=== PATIENT | female | born 1940 | race Caucasian/White ===

== ENCOUNTER 2016-09-15 13:10 | Observation (INO) | payer MEDICARE ==
[2016-09-15] MEDS ORDERED: MORPHINE SULFATE 4 MG INJ IV ONE (13:41)
[2016-09-15] MEDS ORDERED: Zofran 4 MG/2 ML VIAL IV ONE (13:41)
--- NOTE | 2016-09-15 13:43 | ERPHSYRPT ---
- History of Present Illness Time Seen by Provider: 09/15/16 13:30 Source: patient Exam Limitations: clinical condition Patient Subjective Stated Complaint: PT REPORTS BACK PAIN BEGINNING JOANNE 1 MONTH AGO-STATES PAIN INTERMITTANT-INCREASED THIS AM-DENIES UNUSUAL NUMBNESS OR TINLGING-DENIES INJURY-DENIES FALL Triage Nursing Assessment: PT PINK WARM ET [id number] TO BEAR WT ET TRANSFER WITH MINIMAL ASSISTANCE-RESP EASY ET NONLABORED-NO BRUISING OR ABRASIONS NOTED Physician History: PATIENT WITH HISTORY OF CHRONIC LOW BACK PAIN, FOR 4-5 MONTHS WITH INCREASING SEVERITY IN DISCOMFORT. DENIES HEAVY LIFTING, TRAUMA OF INJURY. DENIES RADIATION OF PAIN FROM BACK INTO BUTTOCK OR LEGS. Timing/Duration: today Method of Injury: unknown Quality: throbbing Back Pain Location: lumbar spine Severity of Pain-Max: severe Severity of Pain-Current: severe Associated Symptoms: muscle spasms Previous symptoms: same symptoms as today Allergies/Adverse Reactions: celecoxib [From Celebrex] Allergy (Verified 09/15/16 13:16) fenoprofen calcium [From Nalfon] Allergy (Verified 09/15/16 13:16) Home Medications: Metformin HCl 500 mg [Glucophage 500 MG] 500 mg PO BID 09/15/16 [History] Hx Tetanus, Diphtheria Vaccination/Date Given: No Hx Influenza Vaccination/Date Given: No Hx Pneumococcal Vaccination/Date Given: No Immunizations Up to Date: Yes - Review of Systems Constitutional: No Fever, No Chills Eyes: No Symptoms Ears, Nose, & Throat: No Symptoms Respiratory: No Symptoms, No Cough, No Dyspnea Cardiac: No Symptoms, No Chest Pain, No Edema, No Syncope Abdominal/Gastrointestinal: No Abdominal Pain, No Nausea, No Vomiting, No Diarrhea Genitourinary Symptoms: No Dysuria Musculoskeletal: No Back Pain, No Neck Pain Skin: No Symptoms, No Rash Neurological: No Dizziness, No Focal Weakness, No Sensory Changes Psychological: No Symptoms Endocrine: No Symptoms All Other Systems: Reviewed and Negative - Past Medical History Pertinent Past Medical History: Yes Cardiac History: Arrhythmia Endocrine Medical History: Diabetes Type II - Past Surgical History Past Surgical History: Yes Gastrointestinal: Appendectomy Musculoskeletal: Joint Replacement Female Surgical History: Hysterectomy, Other Other Surgical History: TONSILECTOMY - Social History Smoking Status: Former smoker How long have you smoked: 20 Exposure to second hand smoke: No Drug Use: none Patient Lives Alone: No - Female History Hx Now: No - Nursing Vital Signs Nursing Vital Signs: Initial Vital Signs Temperature 97.9 F 09/15/16 13:10 Pulse Rate 64 09/15/16 13:10 Respiratory Rate 20 09/15/16 13:10 Blood Pressure 172/68 09/15/16 13:10 O2 Sat by Pulse Oximetry 96 09/15/16 13:10 Pain Scale Pain Intensity 7 - Physical Exam General Appearance: mild distress Eye Exam: PERRL/EOMI, eyes nml inspection Neck Exam: normal inspection, non-tender, supple, full range of motion, No meningismus, No midline tenderness Respiratory Exam: normal breath sounds, lungs clear, No respiratory distress Cardiovascular Exam: regular rate/rhythm, normal heart sounds Gastrointestinal Exam: soft, No tenderness, No mass Back Exam: normal inspection, decreased range of motion, point tenderness (L-1 TO L-5 VERTEBRAL TENDERNESS, NO SARCROILIAC TENDERNESS) Extremity Exam: normal inspection, normal range of motion, No calf tenderness, No pedal edema Peripheral Pulses: carotid (R): 2+, carotid (L): 2+, femoral (R): 2+, femoral (L ): 2+, dorsalis-pedis (R): 2+ Neurologic Exam: alert, oriented x 3, cooperative, bible reader II-XII nml as tested, normal mood/affect, nml station & gait, sensation nml, No motor deficits Skin Exam: normal color, warm, dry, No rash SpO2 Interpretation: normal SpO2: 96 Oxygen Delivery: Room Air - CT Exams Lumbar Spine CT Interpretation: Discussed w/radiologist (MULTILEVEL DEGENERATIVE SPONDYLOSIS , GREATEST EXTENT AT L-4 TO L-5 LEVEL WHERE THERE IS SPINAL CANAL AND BILATERAL FORAMINAL STENOSIS, THERE IS SUBSEQUENT LEFT L-4 NERVE ROOT IMPINGEMENT) Ordered Tests: Active Orders 24 hr Category Date Time Status Up With Assistance ROUTINE Activity 09/15/16 15:06 Active Accucheck ACHS Care 09/15/16 15:06 Active Admission/Status Order ROUTINE Care 09/15/16 15:06 Active Call Admit Doctor for Orders ON ADMISSION Care 09/15/16 15:07 Active Clean Catch Urine Specimen STAT Care 09/15/16 13:41 Active Code Status Order ROUTINE Care 09/15/16 15:06 Active IV Care Q6H Care 09/15/16 15:06 Active IV Insertion STAT Care 09/15/16 13:41 Active Neuro Checks Q2H Care 09/15/16 15:06 Active Vital Signs Q4H Care 09/15/16 15:06 Active 1800 Calorie ADA Diet 09/15/16 Dinner Active LUMBAR SPINE W/O [CT] Stat Exams 09/15/16 13:41 Completed Oxygen NASAL CANNULA 2 lpm RT 09/15/16 15:06 Active Transfer Order Routine Transfer 09/15/16 15:05 Ordered Medication Summary Generic Name Dose Route Start Last Admin Trade Name Frejosiah PRN Reason Stop Dose Admin Acetaminophen 650 mg 09/15/16 15:06 Tylenol 325 Mg PO 10/15/16 15:05 Q4H PRN PRN PAIN AND/OR FEVER Sodium Chloride 1,000 mls @ 50 mls/hr 09/15/16 13:45 09/15/16 14:13 Sodium Chloride 0.9% 1000 Ml IV 10/15/16 13:44 100 mls/hr .Q20H MIRZA Administration Insulin Aspart 0 unit 09/15/16 15:06 Novolog Insulin SQ 10/15/16 15:05 UD PRN HYPERGLYCEMIA Metformin HCl 500 mg 09/15/16 17:00 Glucophage 500 Mg PO 10/15/16 16:59 BIDWM MIRZA Morphine Sulfate 4 mg 09/15/16 15:06 Morphine Sulfate 4 Mg Inj IV 09/20/16 15:05 Q4H PRN PRN PAIN Ondansetron HCl 4 mg 09/15/16 15:06 Zofran 4 Mg/2 Ml Vial IV 10/15/16 15:05 Q6H PRN PRN NAUSEA/VOMITING Discontinued Medications Generic Name Dose Route Start Last Admin Trade Name Shekhar PRN Reason Stop Dose Admin Morphine Sulfate 4 mg 09/15/16 13:41 09/15/16 14:16 Morphine Sulfate 4 Mg Inj IV 09/15/16 13:42 4 mg STAT ONE Administration Morphine Sulfate Confirm 09/15/16 13:51 Morphine Sulfate 4 Mg Inj Administered 09/15/16 13:52 Dose 4 mg .ROUTE .STK-MED ONE Ondansetron HCl 4 mg 09/15/16 13:41 09/15/16 14:15 Zofran 4 Mg/2 Ml Vial IV 09/15/16 13:42 4 mg STAT ONE Administration Ondansetron HCl Confirm 09/15/16 13:51 Zofran 4 Mg/2 Ml Vial Administered 09/15/16 13:52 Dose 4 mg .ROUTE .STK-MED ONE - Progress Progress: pain not gone completely Progress Note: 09/15/16 15:03 PATIENT GIVEN IV NORMAL SALINE 100ML/HR, ZOFRAN 4MG, MORPHINE SULFATE 4MG IV Discussed with : Andrew (DISCUSSED WITH DR SPIVEY AT 1450 FOR ADMISSION) Will see patient in: hospital (observation) - Departure Time of Disposition: 15:10 Departure Disposition: Observation Clinical Impression: INTRACTABLE LOW BACK PAIN, Degenerative joint disease (DJD) of lumbar spine Condition: Stable Critical Care Time: No Referrals: QUOC DESHPANDE [Primary Care Provider] -
[2016-09-15] MEDS ORDERED: Sodium Chloride 0.9% 1000 ML 1,000 ML IV SCH (13:45)
[2016-09-15] MEDS ORDERED: MORPHINE SULFATE 4 MG INJ ONE (13:51)
[2016-09-15] MEDS ORDERED: Zofran 4 MG/2 ML VIAL ONE (13:51)
--- NOTE | 2016-09-15 14:40 | XRAY ---
Indication: Chronic intermittent low back pain. Right hip and right back pain since this morning. Multiple contiguous axial images obtained through the lumbar spine. Sagittal and coronal reformatted images obtained. Comparison: None Axial images negative for acute fracture or suspicious bony lesions. There is mild/moderate L1-L5 broad-based disc osteophyte complex and degenerative vacuum disc phenomena. Greatest extent at L4-L5 level where there is spinal canal and bilateral foraminal stenosis compounded by 4 mm anterolisthesis and marked bilateral degenerative facet hypertrophy. Mean AP thecal sac diameter at this level measures approximately 5 mm. Same level also demonstrates bilateral foraminal stenosis, left greater than right with impingement of the exiting left L4 nerve root. Sagittal and coronal reformatted images demonstrates normal alignment with tiny multilevel thoracolumbar Schmorl nodes. No acute compression fracture. Visualized noncontrasted soft tissues demonstrates mild scattered aortoiliac calcifications. Impression: Multilevel degenerative spondylosis. Greatest extent at L4-L5 level where there is spinal canal and bilateral foraminal stenosis due to combination of disc osteophyte complex, grade 1 spondylolisthesis, and bilateral degenerative facet hypertrophy. Subsequent left L4 nerve root impingement. CTDI 83.70
[2016-09-15] MEDS ORDERED: Zofran 4 MG/2 ML VIAL IV PRN (15:06)
[2016-09-15] MEDS ORDERED: NovoLOG Insulin SQ PRN (15:06)
[2016-09-15] MEDS ORDERED: TYLENOL 325 MG PO PRN (15:06)
[2016-09-15] MEDS ORDERED: Glucophage 500 MG PO SCH (17:00)
[2016-09-15] MEDS: Glucophage XR 500 MG PO SCH (17:29)
[2016-09-15] MEDS: VITA-BEE WITH C PO SCH (17:30)
[2016-09-15] MEDS: MORPHINE SULFATE 4 MG INJ IV PRN (18:14)
[2016-09-15] MEDS: ZOCOR 20MG PO SCH (21:43)
[2016-09-16] MEDS: MORPHINE SULFATE 4 MG INJ IV PRN ×3 (04:36→23:22)
--- NOTE | 2016-09-16 08:46 | HP ---
CHIEF COMPLAINT: Intractable back pain. HISTORY OF PRESENT ILLNESS: The patient is a 76 year-old white female who reports increasing back pain over the past two months. She has a long history of back pain problems. She reports that she got up from bed feeling fine but when she got to the toilet she was unable to get up without excruciating pain. The patient summoned EMS who took up to three people to get her onto the ambulance cart. She was taken to [facility] initially where they received very rude treatment, according to the patient's family. They discharged her home with just a pain shot despite the fact they were unable to care for her in the home. They therefore immediately brought her to our facility and she was subsequently admitted for pain control for the intractable back pain. PAST MEDICAL HISTORY: Significant for diabetes mellitus type 2, cardiac arrhythmia. PAST SURGICAL HISTORY: Appendectomy, bilateral knee replacement, hysterectomy, tonsillectomy. HOME MEDICATIONS: Metformin 500 mg b.i.d. ALLERGIES: CELEBREX, NALFON. PHYSICAL EXAMINATION: Reveals an obese white female currently at rest in bed with minimal pain at the current time but reports pain with any movement. The patient's vital signs on admission showed temperature 97.9F, pulse 64, respiratory rate 20, blood pressure 172/68. O2 saturation was noted to be 96% on room air. HEENT: Normocephalic, atraumatic. Pupils equal round reactive to light. Extraocular movements are intact. Oropharynx is pink and moist. NECK: Supple without lymphadenopathy, thyromegaly or JVD. CHEST: Clear to auscultation with good air movement bilaterally. HEART: Regular rate and rhythm without murmurs, rubs or gallops. ABDOMEN: Soft, nontender, nondistended without hepatosplenomegaly or masses. EXTREMITIES: Without clubbing, cyanosis or edema. NEUROLOGIC: The patient appeared to be alert and oriented x3 with no focal deficits that were obvious. LAB DATA AND TESTS: The patient's evaluations included x-rays that revealed multilevel degenerative spondylosis greatest extent at the L4-L5, spinal canal and bilateral foraminal stenosis due to a combination of osteophyte complex grade I spondylolisthesis and bilateral degenerative facet hypertrophy. Subsequently L4 nerve root impingement. The patient had no laboratory studies in our facility but at [facility] she had UA which was essentially normal. CBC which was also likewise normal. Her metabolic panel showed a glucose nonfasting 171, BUN 16, creatinine 0.8. Liver enzymes were normal. Alkaline phosphatase was normal. ASSESSMENT: A patient with intractable back pain due to the above findings on CT scan. The patient has been admitted for pain control with morphine. We are adding muscle relaxer, anti-inflammatories, physical and occupational therapy evaluation. The patient will likely need subsequent admission to a rehab facility. She may also possibly need further evaluation by a specialist not available in my facility.
[2016-09-16] MEDS: Cyclobenzaprine 10 MG PO SCH ×3 (09:43→21:25)
[2016-09-16] MEDS: Mobic 7.5 MG PO SCH (09:43)
[2016-09-16] MEDS: VITA-BEE WITH C PO SCH (09:44)
[2016-09-16] MEDS ORDERED: FOLIC ACID PO SCH (10:00)
[2016-09-16] MEDS ORDERED: METFORMIN HCL 1000 MG PO SCH (10:00)
[2016-09-16] MEDS ORDERED: VITAMIN B COMP W C PO SCH (10:00)
[2016-09-16] MEDS ORDERED: Sodium Chloride 0.9% 10 ML FLUSH Syringe IV PRN (10:56)
[2016-09-16] MEDS: Sodium Chloride 0.9% 10 ML FLUSH Syringe IV SCH ×2 (15:06→21:25)
[2016-09-16] MEDS: Glucophage XR 500 MG PO SCH (17:12)
[2016-09-16] MEDS: ZOCOR 20MG PO SCH (21:25)
[2016-09-17] MEDS: Sodium Chloride 0.9% 10 ML FLUSH Syringe IV SCH ×3 (06:19→21:11)
[2016-09-17] MEDS: Mobic 7.5 MG PO SCH ×2 (09:41→09:42)
[2016-09-17] MEDS: Cyclobenzaprine 10 MG PO SCH ×3 (09:41→21:11)
[2016-09-17] MEDS: Norco 10/325 MG Tablet PO SCH ×3 (09:42→18:23)
[2016-09-17] MEDS: VITA-BEE WITH C PO SCH (09:42)
[2016-09-17] MEDS: Miralax Powder 17GM PACKET PO SCH (09:43)
[2016-09-17] MEDS: ENOXAPARIN SODIUM SQ SCH (09:43)
[2016-09-17] MEDS: Glucophage XR 500 MG PO SCH (16:50)
[2016-09-17] MEDS: ZOCOR 20MG PO SCH (21:11)
[2016-09-18] MEDS: Norco 10/325 MG Tablet PO SCH ×2 (02:17→11:18)
[2016-09-18] MEDS: Miralax Powder 17GM PACKET PO SCH (08:28)
[2016-09-18] MEDS: ENOXAPARIN SODIUM SQ SCH (08:28)
[2016-09-18] MEDS: VITA-BEE WITH C PO SCH (08:29)
[2016-09-18] MEDS: Mobic 7.5 MG PO SCH (08:29)
[2016-09-18] MEDS: Cyclobenzaprine 10 MG PO SCH (08:29)
--- NOTE | 2016-09-18 11:01 | PCM.DS ---
Discharge Summary Date of Admission: 09/15/16 15:20 Admitting Physician: BINTA SPIVEY Primary Care Provider: QUOC MCCRAY Allergies Allergies celecoxib [From Celebrex] Allergy (Verified 09/15/16 13:16) fenoprofen calcium [From Nalfon] Allergy (Verified 09/15/16 13:16) Hospital Summary - Hospital Course Hospital Course: Pt admitted through ER with intractable back pain, here for pain management. Found to have spinal stenosis on imaging. She was switched from IV to po pain meds yesterday and is tolerating the po meds well. Her pain is currently 3/, this is after being up and around the room on her walker. - Vitals & Intake/Output Vital Signs: Vital Signs Temperature 95.8 F 09/18/16 07:19 Pulse Rate 57 L 09/18/16 07:19 Respiratory Rate 20 09/18/16 07:19 Blood Pressure 143/65 09/18/16 07:19 O2 Sat by Pulse Oximetry 95 09/18/16 07:19 Intake & Output: Intake & Output 09/15/16 09/16/16 09/17/16 09/18/16 11:59 11:59 11:59 11:59 Intake Total 1268 1100 2160 Output Total 106 253 5699 Balance 818 700 910 Weight 102.569 kg - Lab Lab Results-Last 24 Hrs: Accuchecks Date 09/18/16 Date 09/17/16 Date 09/17/16 Date 09/17/16 Time 07:30 Time 16:30 Time 11:30 Accucheck Value: 117 Accucheck Value: 140 Accucheck Value: 124 Accucheck Value: 141 Micro Results-Entire Visit: Accuchecks Date 09/18/1609/17/1609/17/1609/17/16 Time 07:30 Time 16:30 Time 11:30 Accucheck Value: 117 Accucheck Value: 140 Accucheck Value: 124 Accucheck Value: 141 - Procedures and Test Procedures and Tests throughout Hospitalization: Therapy Orders & Screens 09/16/16 08:17 PT Eval & Treat ( Order) ROUTINE Evaluate: Yes Treat: Yes Reason for Eval:: back pain with movement Diagnosis: Intractable back pain Discharge Exam General Appearance: no apparent distress Neurologic Exam: alert, oriented x 3, cooperative Skin Exam: normal color, warm, dry Respiratory Exam: normal breath sounds, lungs clear, No crackles/rales, No rhonchi, No wheezing Cardiovascular Exam: regular rate/rhythm, normal heart sounds, No murmur Extremity Exam: No pedal edema, No swelling Back Exam: normal inspection Final Diagnosis/Problem List - Final Discharge Diagnosis/Problem (1) Intractable back pain Current Visit: No Status: Acute Assessment & Plan: Home on po pain meds and muscle relaxers. [place] 10/[address] mccray yesterday. To get OP PT. (2) Degenerative joint disease (DJD) of lumbar spine Current Visit: Yes Status: Acute Assessment & Plan: as above. (3) Diabetes mellitus Current Visit: Yes Status: Chronic Assessment & Plan: continue metformin. A1c 7.9 on 09/16/16 - f/u with PCP. (4) Hyperlipidemia Current Visit: Yes Status: Acute Assessment & Plan: continue simvastatin - Discharge Disposition: Home, Self-Care Condition: Stable Prescriptions: New Hydrocodone/APAP 10/325 mg [[place] 10/325 MG Tablet] 1 tab PO Q4H PRN PRN #60 tablet PRN Reason: Pain Polyethylene Glycol 3350 17 gm [Miralax Powder 17GM PACKET] 17 gm PO DAILY PRN #0 packet PRN Reason: Constipation Cyclobenzaprine HCl 10 mg [Cyclobenzaprine 10 MG] 10 mg PO TID PRN #30 tablet PRN Reason: Pain Continue Metformin HCl [Metformin HCl ER] 1,000 mg PO DAILY Simvastatin 20 mg PO DAILY Folic Acid/Vitamin B Comp W-C [[place] Plus Tablet] 5 mg PO DAILY Instructions: Low Back Pain, Constipation Additional Instructions: TAKE NORCO EVERY 4 HOURS NEEDED FOR PAIN. NORCO IS CONSTIPATING, TAKE MIRALAX DAILY, THIS IS AN OVER THE COUNTER POWDER THAT YOU ADD TO LIQUID, FOR CONSTIPATION LONG YOU NEED IT. PHYSICAL THERAPY WILL CONTACT YOU REGARDING OT/PT 3 TIMES WEEKLY AN OUTPATIENT. Follow up with: QUOC MCCRAY [Primary Care Provider] - 09/24/16 10:15 am Forms: Discharge Instructions, Patient Portal Information
[2016-09-18 11:59] VITALS: BP 135/70; PULSE 64; O2SAT 93
== END 2016-09-18 11:30 | disposition home or self-care (01) ==
LOC: ED 13:10 → MED SURG 15:20
PROVIDERS: ADMIT Family Medicine; ATTEND Family Medicine
DX: M54.5 Low back pain (principal); M47.896 Other spondylosis, lumbar region; E11.9 Type 2 diabetes mellitus without complications; E78.5 Hyperlipidemia, unspecified; Z79.4 Long term (current) use of insulin
CPT/HCPCS: 36000; 36415; 72131; 82962; 83036; 85652; 86430; 94760; 96360; 96374; 96375; 99285; G0378; J1650; J2270; J2405; A9270-GY

== ENCOUNTER 2019-11-30 19:58 | Emergency (ER) | payer MEDICARE ==
--- NOTE | 2019-11-30 20:01 | ERPHSYRPT ---
- History of Present Illness Time Seen by Provider: 11/30/19 20:01 Source: patient, family Exam Limitations: no limitations Physician History: This is an obese 79-year-old white female who presents to the emergency department after falling backwards and hitting her head. Patient states that she was putting up the hose and then stepped backwards tripped and fell onto her head. She complains of posterior headache and neck pain as well as left hip pain. Patient did not lose consciousness. Patient is not on any anticoagulation therapy. Occurred: just prior to arrival Severity: mild Head Injury Location: occipital Method of Injury: fell (After tripping over a hose) Loss of Consciousness: no loss of consciousness Associated Symptoms: headaches Allergies/Adverse Reactions: celecoxib [From Celebrex] Allergy (Verified 11/30/19 20:06) fenoprofen calcium [From Nalfon] Allergy (Verified 11/30/19 20:06) Home Medications: Simvastatin 40 mg PO HS 09/15/16 [History] Ascorbic Acid [Vitamin C] 1,000 mg PO DAILY 11/30/19 [History] Doxycycline Hyclate [Vibramycin] 50 mg PO DAILY 11/30/19 [History] Feverfew 200 mg PO DAILY 11/30/19 [History] Glimepiride 1 mg PO DAILY 11/30/19 [History] Lutein Extract/Zeaxanthin Ext [Lutein 15 mg Softgel] 1 each PO DAILY 11/30/19 [History] Tramadol HCl 50 mg [Ultram 50 mg] 50 mg PO QID 11/30/19 [History] Vit C/Vit E AC/Lut/Copper/Zinc [Preservision Lutein Softgel] 1 each PO DAILY 11/30/19 [History] Hx Tetanus, Diphtheria Vaccination/Date Given: No Hx Influenza Vaccination/Date Given: No Hx Pneumococcal Vaccination/Date Given: No Travel Risk - International Travel Have you traveled outside of the country in past 3 weeks: No - Coronavirus Screening Are you exhibiting any of the following symptoms?: No Close contact with a COVID-19 positive Pt in past 14-21 Days: No - Review of Systems Constitutional: No Symptoms Eyes: No Symptoms Ears, Nose, & Throat: No Symptoms Respiratory: No Symptoms Cardiac: No Symptoms Abdominal/Gastrointestinal: No Symptoms Genitourinary Symptoms: No Symptoms Musculoskeletal: Neck Pain, Fall, Injury (Left hip) Skin: No Symptoms Neurological: Headache Psychological: No Symptoms Endocrine: No Symptoms Hematologic/Lymphatic: No Symptoms Immunological/Allergic: No Symptoms All Other Systems: Reviewed and Negative - Past Medical History Pertinent Past Medical History: Yes Neurological History: No Pertinent History ENT History: Macular Degeneration Cardiac History: High Cholesterol Respiratory History: No Pertinent History Endocrine Medical History: Diabetes Type II Musculoskeletal History: Osteoarthritis GI Medical History: Irritable Bowel History: No Pertinent History Psycho-Social History: No Pertinent History Female Reproductive Disorders: No Pertinent History Other Medical History: BILATERAL TOTAL KNEE REPLACEMENTS - RIGHT AND LEFT DONE AT SAME TIME APPROXIMATELY 10 YEARS AGO. 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 - Social History Smoking Status: Former smoker How long have you smoked: 6 years Exposure to second hand smoke: No Drug Use: none Patient Lives Alone: No - Nursing Vital Signs Nursing Vital Signs: Initial Vital Signs Temperature 98.4 F 11/30/19 20:07 Pulse Rate 88 11/30/19 20:07 Respiratory Rate 20 11/30/19 20:07 Blood Pressure 181/93 11/30/19 20:07 O2 Sat by Pulse Oximetry 96 11/30/19 20:07 Pain Scale Pain Intensity 8 - Anne Coma Score Best Eye Response ([place]): (4) open spontaneously Best Verbal Response (Anne): (5) oriented Best Motor Response (Anne): (6) obeys commands [place] Total: 15 - Physical Exam General Appearance: mild distress, alert, anxiety, obese Head Injury: contusions, swelling (Posterior scalp) Eye Exam: bilateral eye: normal inspection, PERRL, EOMI ENT Exam: airway nml, nml ext.inspection, No evidence of ENT injury Neck Exam: supple, trachea midline, full range of motion, normal alignment, normal inspection, muscle spasm, other (Patient arrived without a c-collar in place and we placed the c-collar on her upon arrival and after examination.) Cardiovascular/Respiratory Exam: chest non-tender, normal breath sounds, regular rate/rhythm, heart sounds normal, no ecchymosis, no respiratory distress Gastrointestinal/Abdominal Exam: soft, non tender, no guarding Pelvic Exam: not done Rectal Exam: not done Back Exam: normal inspection, normal range of motion, No CVA tenderness, No vertebral tenderness Extremity Exam: normal range of motion, normal inspection, pelvis stable Mental Status Exam: alert, oriented x 3, 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 Exam: normal hearing, normal speech, PERRL Coordination/Gait Exam: normal finger to nose, normal gait, normal cerebellar function Motor/Sensory Exam: no motor deficit, no sensory deficit Skin Exam: normal color, warm, dry Lymphatic Exam: No adenopathy SpO2 Interpretation: normal O2 Delivery: Room Air - Course Nursing assessment & vital signs reviewed: Yes EKG Interpreted by Me: RATE (83), Sinus Rhythm, NORMAL AXIS, NORMAL INTERVALS, NORMAL QRS, Other (No acute ischemic changes.) Ordered Tests: Active Orders 24 hr Category Date Time Status Cervical Collar Application STAT Care 11/30/19 20:15 Active EKG-ER Only STAT Care 11/30/19 20:27 Active IV Insertion STAT Care 11/30/19 20:19 Active CERVICAL SPINE WO CONTRAST [CT] Stat Exams 11/30/19 20:11 Taken HEAD WITHOUT CONTRAST [CT] Stat Exams 11/30/19 20:11 Taken HIP UNI (2V) INCL PEL IF DONE Stat Exams 11/30/19 20:26 Taken Medication Summary Discontinued Medications Generic Name Dose Route Start Last Admin Trade Name Shekhar PRN Reason Stop Dose Admin Morphine Sulfate 4 mg 11/30/19 21:13 11/30/19 21:18 Morphine Sulfate 4 Mg Inj IV 11/30/19 21:14 4 mg STAT ONE Administration Morphine Sulfate Confirm 11/30/19 21:14 Morphine Sulfate 4 Mg Inj Administered 11/30/19 21:15 Dose 4 mg .ROUTE .STK-MED ONE Ondansetron HCl 4 mg 11/30/19 21:13 11/30/19 21:17 Zofran 4 Mg/2 Ml Vial IV 11/30/19 21:14 4 mg STAT ONE Administration Ondansetron HCl Confirm 11/30/19 21:14 Zofran 4 Mg/2 Ml Vial Administered 11/30/19 21:15 Dose 4 mg .ROUTE .STK-MED ONE - Progress Progress: improved, pain not gone completely, re-examined Progress Note: 11/30/19 21:32 CAT scan of the head without contrast reveals no acute intracranial abnormality CAT scan of the cervical spine without contrast reveals no acute fracture or subluxation. X-ray of the pelvis and left hip reveals no evidence of any acute fracture or dislocation. - Departure Departure Disposition: Home Clinical Impression: Fall with injury, Head injury, Contusion Condition: Stable Critical Care Time: No Referrals: QUOC DESHPANDE [Primary Care Provider] - Additional Instructions: Ice pack to area 3 times a day for 15 minutes at a time for the next 72 hours. May use Tylenol for pain. Hold on the plain Tylenol if you take the [place] pain medication. Have family members wake you up every 2 hours throughout the evening and morning. Return to the emergency department if sudden increase in pain or if vomiting occurs or if family members feel you are not your normal self. Prescriptions: Hydrocodone/APAP 5-325 Tab^^^ [[place] 5-325 Tablet^^^] 1 tab PO Q8H PRN PRN #8 tablet MDD 3 PRN Reason: Pain Cyclobenzaprine HCl 10 mg [Cyclobenzaprine 10 MG] 10 mg PO TID #10 tablet
[2019-11-30] MEDS ORDERED: Zofran 4 MG/2 ML VIAL IV ONE (21:13)
[2019-11-30] MEDS ORDERED: MORPHINE SULFATE 4 MG INJ IV ONE (21:13)
[2019-11-30] MEDS ORDERED: MORPHINE SULFATE 4 MG INJ ONE (21:14)
[2019-11-30] MEDS ORDERED: Zofran 4 MG/2 ML VIAL ONE (21:14)
[2019-11-30 21:54] VITALS: BP 174/72; PULSE 80; O2SAT 94
--- NOTE | 2019-11-30 22:11 | XRAY ---
Indication: Pain following fall. Posterior hematoma. Multiple contiguous axial images obtained through the head without contrast. Comparison: July 10, 2011. There is age-appropriate global atrophy and minimal periventricular degenerative micro-ischemia bilaterally. No acute intracranial hemorrhage, abnormal extra-axial fluid collection, or mass effect. Fourth ventricle is midline without hydrocephalus. New small posterior scalp hematoma near the vertex. Bony calvarium intact. Visualized paranasal sinuses and mastoid air cells are clear. Impression: 1. New posterior scalp hematoma. No underlying fracture or acute intracranial abnormalities. 2. Normal aging brain including atrophy and degenerative micro-ischemia. Comment: Preliminary interpretation was made by [facility]. No critical discrepancy.
--- NOTE | 2019-11-30 22:13 | XRAY ---
Indication: Pain following fall. Comparison: None AP pelvis and 2 view left hip demonstrates osteopenia, moderate lower lumbar degenerative spondylosis, and mild degenerative changes of both hips. No other bony, articular, or soft tissue abnormalities.
--- NOTE | 2019-11-30 22:17 | XRAY ---
Indication: Pain following fall. Posterior hematoma. Multiple contiguous axial images obtained through the cervical spine. Sagittal and coronal reformatted images obtained.. Comparison: July 10, 2011. Osseous structures demineralized consistent with patient's age. Axial images negative for acute fracture, suspicious bony lesions, or spinal canal stenosis. Stable mild C4-C57 degenerative endplate spurring and mild atlantoaxial degenerative arthropathy. Progressive worsening mild/moderate multilevel bilateral degenerative facet hypertrophy. Sagittal and coronal reformatted images again demonstrates lordotic straightening, positional versus paraspinal spasm. Stable C4-C6 disc space narrowing. No acute compression fracture, subluxation, or jumped facet. Normal appearing craniocervical junction. Visualized noncontrasted soft tissues demonstrates minimal carotid calcifications bilaterally. Impression: 1. Again cervical lordotic straightening, positional versus paraspinal spasm. 2. Negative acute fracture/subluxation. 3. Incidental multilevel degenerative changes. Comment: Preliminary interpretation was made by [facility]. No critical discrepancy.
== END 2019-11-30 22:08 | disposition home or self-care (01) ==
LOC: ED 19:58
DX: S00.03XA Contusion of scalp, initial encounter (principal); W01.0XXA Fall on same level from slipping, tripping and stumbling without subsequent striking against object, initial encounter; R51.9 Headache, unspecified; M54.2 Cervicalgia; M25.552 Pain in left hip; Z79.891 Long term (current) use of opiate analgesic; E78.00 Pure hypercholesterolemia, unspecified; E11.9 Type 2 diabetes mellitus without complications
CPT/HCPCS: 36000; 70450; 72125; 73502; 93005; 96374; 96375; 99284; J2270; J2405; L0172

== ENCOUNTER 2022-08-16 09:39 | Observation (INO) | payer MEDICARE ==
--- NOTE | 2022-08-16 09:47 | ERPHSYRPT ---
- History of Present Illness Time Seen by Provider: 08/16/22 09:46 Source: patient, family Exam Limitations: no limitations Physician History: This is an 82-year-old obese white female patient Dr. 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 She has had these symptoms intermittently for the last 2 weeks. She did fall and hit her head 2 weeks ago but never had it evaluated. Again, over the last 2 weeks her symptoms have been intermittent but the symptoms were worse this morning. She has not had any nausea vomiting or diarrhea. She has no abdominal pain. Timing/Duration: week(s) (2), intermittent, worse Severity of Dyspnea-Max: moderate Severity of Dyspnea-Current: moderate Possible Cause: no prior episodes Modifying Factors: Improves With: coughing Associated Symptoms: cough, chest pain/discomfort (Described as a generalized tightness) Allergies/Adverse Reactions: celecoxib [From Celebrex] Allergy (Verified 08/16/22 09:50) fenoprofen calcium [From Nalfon] Allergy (Verified 08/16/22 09:50) Home Medications: Simvastatin 40 mg PO HS 09/15/16 [History] Doxycycline Hyclate [Vibramycin] 50 mg PO DAILY 11/30/19 [History] Glimepiride 1 mg PO DAILY 11/30/19 [History] Lutein Extract/Zeaxanthin Ext [Lutein 15 mg Softgel] 1 each PO DAILY 11/30/19 [History] Tramadol HCl 50 mg [Ultram 50 mg] 50 mg PO QID 11/30/19 [History] Vit C/E/Cuperic/Zinc/Lutein [Preservision Lutein Softgel] 1 each PO DAILY 11/30/19 [History] Aspirin 81 gm Chew [Baby Aspirin 81 mg Chew] 81 mg PO DAILY 08/16/22 [History] Desoximetasone 15 gm TP DAILY 08/16/22 [History] Honey [Medihoney] 15 ml TP DAILY 08/16/22 [History] Tramadol HCl 50 mg [Ultram 50 mg] 50 mg PO QID 08/16/22 [History] metroNIDAZOLE [Metronidazole] 45 gm TP DAILY 08/16/22 [History] Hx Tetanus, Diphtheria Vaccination/Date Given: No Hx Influenza Vaccination/Date Given: No Hx Pneumococcal Vaccination/Date Given: No Travel Risk - International Travel Have you traveled outside of the country in past 3 weeks: No - Coronavirus Screening Are you exhibiting any of the following symptoms?: Yes Symptoms: Cough: New Onset, Shortness of Breath Close contact with a COVID-19 positive Pt in past 14-21 Days: No - Review of Systems Constitutional: Weakness Eyes: No Symptoms Ears, Nose, & Throat: No Symptoms Respiratory: Cough, Dyspnea on Exertion (MACIEL) Cardiac: Chest Pain (Neurolyse chest tightness) Abdominal/Gastrointestinal: No Symptoms Genitourinary Symptoms: No Symptoms Musculoskeletal: No Symptoms Skin: No Symptoms Neurological: Headache Psychological: No Symptoms Endocrine: No Symptoms Hematologic/Lymphatic: No Symptoms Immunological/Allergic: No Symptoms All Other Systems: Reviewed and Negative - Past Medical History Pertinent Past Medical History: Yes Neurological History: No Pertinent History ENT History: Macular Degeneration Cardiac History: High Cholesterol Respiratory History: No Pertinent History Endocrine Medical History: Diabetes Type II Musculoskeletal History: Osteoarthritis GI Medical History: Irritable Bowel History: No Pertinent History Psycho-Social History: No Pertinent History Female Reproductive Disorders: No Pertinent History Other Medical History: BILATERAL TOTAL KNEE REPLACEMENTS - RIGHT AND LEFT DONE AT SAME TIME APPROXIMATELY 10 YEARS AGO. 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 - Social History Smoking Status: Former smoker How long have you smoked: 6 years Exposure to second hand smoke: No Drug Use: none Patient Lives Alone: No - Nursing Vital Signs Nursing Vital Signs: Initial Vital Signs Respiratory Rate 24 08/16/22 09:43 O2 Sat by Pulse Oximetry 91 L 08/16/22 09:43 Pain Scale Pain Intensity 8 - Physical Exam General Appearance: no apparent distress, alert, anxiety, obese Eye Exam: PERRL/EOMI, eyes nml inspection Ears, Nose, Throat Exam: hearing grossly normal, normal ENT inspection, normal pharynx Neck Exam: normal inspection, non-tender, supple, full range of motion Respiratory Exam: normal breath sounds, chest tenderness (Described as generalized tightness), lungs clear, airway intact, No respiratory distress, No accessory muscle use Cardiovascular/Chest Exam: normal heart sounds, regular rate/rhythm Abdominal/Gastrointestinal Exam: soft, normal bowel sounds, No tenderness Rectal Exam: not done Extremity Exam: non-tender, normal range of motion, normal inspection, normal capillary refill, no calf tenderness, no pedal edema, pelvis stable, No calf tenderness Neurologic Exam: alert, oriented x 3, cooperative, fashion consultant II-XII nml as tested, normal mood/affect, nml cerebellar function, nml station & gait, sensation nml Skin Exam: normal color, warm, dry Lymphatic Exam: No adenopathy SpO2 Interpretation: normal, borderline oxygenation SpO2: 94 O2 Delivery: Room Air - Course Nursing assessment & vital signs reviewed: Yes Ordered Tests: Active Orders 24 hr Category Date Time Status EKG-ER Only STAT Care 08/16/22 09:47 Active IV Insertion STAT Care 08/16/22 09:47 Active Pulse Oximetry (ED) STAT Care 08/16/22 09:47 Active CHEST 1 VIEW (PORTABLE) Stat Exams 08/16/22 09:47 Completed CHEST WITH CONTRAST [CT] Stat Exams 08/16/22 10:54 Completed HEAD WITHOUT CONTRAST [CT] Stat Exams 08/16/22 09:48 Completed CBC W DIFF Stat Lab 08/16/22 10:09 Completed CMP Stat Lab 08/16/22 10:09 Completed D-DIMER QUANTITATIVE Stat Lab 08/16/22 10:09 Completed NT PRO BNPII Stat Lab 08/16/22 10:09 Completed PROTIME WITH INR Stat Lab 08/16/22 10:09 Completed TROPONIN Q4H Lab 08/16/22 10:09 Completed TROPONIN Q4H Lab 08/16/22 14:00 Ordered TROPONIN Q4H Lab 08/16/22 18:00 Ordered Transfer Order Routine Transfer 08/16/22 Ordered Medication Summary Generic Name Dose Route Start Last Admin Trade Name Freq PRN Reason Stop Dose Admin Ceftriaxone Sodium/Dextrose 1 g in 50 mls @ 100 mls/hr 08/16/22 12:20 08/16/22 12:25 Rocephin 1 Gm-D5w 50 Ml Bag IV 08/16/22 12:49 100 ml/hr STAT STA 100 mls/hr Administration Discontinued Medications Generic Name Dose Route Start Last Admin Trade Name Freq PRN Reason Stop Dose Admin Hydrocodone Bitart/Acetaminophen 10 ml 08/16/22 11:51 08/16/22 11:58 Hydrocodone/Acetaminophen 5 Ml Udcup PO 08/16/22 11:52 10 ml STAT STA Administration Hydrocodone Bitart/Acetaminophen Confirm 08/16/22 11:57 Hydrocodone/Acetaminophen 5 Ml Udcup Administered 08/16/22 11:58 Dose 10 ml .ROUTE .STK-MED ONE Sodium Chloride 500 mls @ 500 mls/hr 08/16/22 10:54 08/16/22 12:10 Sodium Chloride 0.9% 500 Ml IV 08/16/22 11:53 Infused .Q1H ONE Infusion Sodium Chloride Confirm 08/16/22 11:09 Sodium Chloride 0.9% 500 Ml Administered 08/16/22 11:10 Dose 500 mls @ ud IV .STK-MED ONE Ceftriaxone Sodium/Dextrose Confirm 08/16/22 12:23 Rocephin 1 Gm-D5w 50 Ml Bag Administered 08/16/22 12:24 Dose 1 g in 50 mls @ ud IV .STK-MED ONE Morphine Sulfate 4 mg 08/16/22 12:32 08/16/22 12:33 Morphine Sulfate 4 Mg/Ml Injection IV 08/16/22 12:33 4 mg STAT ONE Administration Morphine Sulfate Confirm 08/16/22 12:33 Morphine Sulfate 4 Mg/Ml Injection Administered 08/16/22 12:34 Dose 4 mg .ROUTE .STK-MED ONE Ondansetron HCl 4 mg 08/16/22 12:32 08/16/22 12:33 Ondansetron Hcl 4 Mg/2 Ml Vial IV 08/16/22 12:33 4 mg STAT ONE Administration Ondansetron HCl Confirm 08/16/22 12:33 Ondansetron Hcl 4 Mg/2 Ml Vial Administered 08/16/22 12:34 Dose 4 mg .ROUTE .STK-MED ONE Lab/Rad Data: Laboratory Result Diagrams 08/16/22 10:09 08/16/22 10:09 Laboratory Results 08/16/22 08/16/22 08/16/22 Range/Units 10:09 10:09 10:09 WBC (4.0-10.5) x10^3/uL RBC (4.1-5.4) x10^6/uL Hgb (12.0-16.0) g/dL Hct (35-47) % MCV (78-100) fL MCH (26-32) pg MCHC (32-36) g/dL RDW (11.5-14.0) % Plt Count (150-450) x10^3/uL MPV (7.5-11.0) fL Gran % (36.0-66.0) % Immature Gran % (Auto) (0.00-0.4) % Nucleat RBC Rel Count (0.00-0.1) % Eos # (Auto) (0-0.5) x10^3/uL Immature Gran # (Auto) (0.00-0.03) x10^3u/L Absolute Lymphs (auto) (1.0-4.6) x10^3/uL Absolute Monos (auto) (0.0-1.3) x10^3/uL Absolute Nucleated RBC (0.00-0.01) x10^3u/L Lymphocytes % (24.0-44.0) % Monocytes % (0.0-12.0) % Eosinophils % (0.00-5.0) % Basophils % (0.0-0.4) % Absolute Granulocytes (1.4-6.9) x10^3/uL Basophils # (0-0.4) x10^3/uL PT (9.4-12.5) SECONDS INR (0.8-3.0) D-Dimer (0.0-0.50) mg/L Sodium (137-145) mmol/L Potassium (3.5-5.1) mmol/L Chloride (98-107) mmol/L Carbon Dioxide (22-30) mmol/L Anion Gap (5-15) MEQ/L BUN (7-17) mg/dL Creatinine (0.52-1.04) mg/dL Estimated GFR ML/MIN Glucose (74-106) mg/dL Calcium (8.4-10.2) mg/dL Total Bilirubin (0.2-1.3) mg/dL AST (14-36) U/L ALT (0-35) U/L Alkaline Phosphatase (38-126) U/L Troponin I < 0.012 (0.000-0.034) ng/mL NT-Pro-B Natriuret Pep 1530 (<300) pg/mL Serum Total Protein (6.3-8.2) g/dL Albumin (3.5-5.0) g/dL Influenza Type A Ag NEGATIVE (NEGATIVE) Influenza Type B Ag NEGATIVE (NEGATIVE) RSV (PCR) NEGATIVE (NEGATIVE) SARS-CoV-2 (PCR) NEGATIVE (NEGATIVE) 08/16/22 08/16/22 08/16/22 Range/Units 10:09 10:09 10:09 WBC 8.1 (4.0-10.5) x10^3/uL RBC 3.85 L (4.1-5.4) x10^6/uL Hgb 11.5 L (12.0-16.0) g/dL Hct 36.7 (35-47) % MCV 95.3 (78-100) fL MCH 29.9 (26-32) pg MCHC 31.3 L (32-36) g/dL RDW 13.6 (11.5-14.0) % Plt Count 268 (150-450) x10^3/uL MPV 10.2 (7.5-11.0) fL Gran % 72.9 H (36.0-66.0) % Immature Gran % (Auto) 0.2 (0.00-0.4) % Nucleat RBC Rel Count 0.0 (0.00-0.1) % Eos # (Auto) 0.17 (0-0.5) x10^3/uL Immature Gran # (Auto) 0.02 (0.00-0.03) x10^3u/L Absolute Lymphs (auto) 1.19 (1.0-4.6) x10^3/uL Absolute Monos (auto) 0.80 (0.0-1.3) x10^3/uL Absolute Nucleated RBC 0.00 (0.00-0.01) x10^3u/L Lymphocytes % 14.8 L (24.0-44.0) % Monocytes % 9.9 (0.0-12.0) % Eosinophils % 2.1 (0.00-5.0) % Basophils % 0.1 (0.0-0.4) % Absolute Granulocytes 5.87 (1.4-6.9) x10^3/uL Basophils # 0.01 (0-0.4) x10^3/uL PT 11.1 (9.4-12.5) SECONDS INR 1.02 (0.8-3.0) D-Dimer 1.05 H* (0.0-0.50) mg/L Sodium 140 (137-145) mmol/L Potassium 4.6 (3.5-5.1) mmol/L Chloride 105 (98-107) mmol/L Carbon Dioxide 26 (22-30) mmol/L Anion Gap 14.1 (5-15) MEQ/L BUN 13 (7-17) mg/dL Creatinine 0.64 (0.52-1.04) mg/dL Estimated GFR > 60.0 ML/MIN Glucose 197 H (74-106) mg/dL Calcium 8.7 (8.4-10.2) mg/dL Total Bilirubin 0.60 (0.2-1.3) mg/dL AST 38 H (14-36) U/L ALT 53 H (0-35) U/L Alkaline Phosphatase 111 (38-126) U/L Troponin I (0.000-0.034) ng/mL NT-Pro-B Natriuret Pep (<300) pg/mL Serum Total Protein 7.7 (6.3-8.2) g/dL Albumin 3.8 (3.5-5.0) g/dL Influenza Type A Ag (NEGATIVE) Influenza Type B Ag (NEGATIVE) RSV (PCR) (NEGATIVE) SARS-CoV-2 (PCR) (NEGATIVE) - Progress Progress: improved, re-examined Air Movement: good Progress Note: 08/16/22 10:59 Chest x-ray was interpreted by the radiologist and the impression was reviewed by me. There is a new lateral right base round masslike opacity at least 6 cm in size 08/16/22 12:[address] was performed with contrast patient had symptoms of cough shortness of breath and an elevated D-dimer. I did contact Dr. Alberto Lim the radiologist he did not mention the presence or absence of a pulmonary embolus. I have ordered this study in the past with and without instructions to evaluate for pulmonary embolus and received comments from radiology for the presence or absence of a pulmonary embolus. When I contacted him and brought this to his attention he stated that he was not assuming or presuming that I was requesting commentary on the presence or absence of a pulmonary embolus because I did not request. 08/16/22 12:28 CT of the head was interpreted by the radiologist and I reviewed the impression. This is a nonacute senile brain on this examination. CT scan of the chest without contrast shows near complete right middle lobe infiltrate/consolidation with minimal right lower lobe consolidating disease wit h reactive effusion. In addition, there is distal esophageal circumferential wall thickening.? Reflux esophagitis This patient's medical issue is 1 of high complexity. The level complexity and the work-up performed is based on review of the patient's past medical history, review of the patient's medication list, review the patient's drug allergy list, history present illness and physical findings on examination. The work-up included a chest x-ray, twelve-lead EKG, placement of intravenous line, CBC, CMP, troponin level, D-dimer level, and BNP. I reviewed the results of the work-up. There was an elevated D-dimer and therefore I ordered a CT of the chest with contrast with the above-stated findings. Patient was mildly hypoxic upon entrance in the emergency department therefore we will contact the telehospitalist communications controller today for placing this patient in observation versus full admission. Patient will benefit from respiratory therapy intervention as well as intravenous antibiotics. 08/16/22 12:[address] Rodriguez, our telehospitalist on-call. I reviewed the patient history of present illness as well as her past medical history and the findings on physical examination. I reviewed the work-up results with him. We will admit this patient for IV antibiotics and respiratory therapy treatments. We will repeat labs in the morning. Blood Culture(s) Obtained: No Antibiotics given: No Counseled pt/family regarding: lab results, diagnosis, need for follow-up, rad results Medical Desision Making - Independent Historian Additional History obtained from: Spouse - Discussion of managment Reviewed:: Test results, Need for additional workup Agreed on:: Treatment plan, decision to admit - Diagnostic Testing Diagnostic test were ordered, analyzed, and reviewed by me: Yes Radiological Interpretation: Reviewed by me, Teleradiologist Report - Risk of complications The pt has a high risk of morbidity or mortality based on: Decision regarding hospitilization or escalation of hosp level of care - Departure Departure Disposition: In-patient Admission Clinical Impression: Pneumonia involving right lung, Pleural effusion, right, Hypoxia Condition: Fair Critical Care Time: No Referrals: QUOC DESHPANDE [Primary Care Provider] - Follow up/PCP as directed
[2022-08-16 10:10] LABS: Absolute Neutrophil Ct (ANC) 5.87 x10^3/uL (1.4-6.9); BASOPHIL % 0.1 % (0.0-0.4); Basophil (Absolute #) 0.01 x10^3/uL (0-0.4); Eosinophil % 2.1 % (0.00-5.0); Eosinophil (Absolute #) 0.17 x10^3/uL (0-0.5); Hematocrit 36.7 % (35-47); Hemoglobin 11.5 g/dL (12.0-16.0); IMMATURE GRAN # 0.02 x10^3u/L (0.00-0.03); IMMATURE GRAN % 0.2 % (0.00-0.4); Lymphocyte (Absolute #) 1.19 x10^3/uL (1.0-4.6); Lymphocytes % 14.8 % (24.0-44.0); Mean Cell Volume 95.3 fL (78-100); Mean Corpuscular Hemoglobin 29.9 pg (26-32); Mean Corpuscular Hgb Concent. 31.3 g/dL (32-36); Mean Platelet Volume 10.2 fL (7.5-11.0); Monocytes % 9.9 % (0.0-12.0); Neutrophil % 72.9 % (36.0-66.0); Platelet Count 268 x10^3/uL (150-450); Red Blood Count 3.85 x10^6/uL (4.1-5.4); Red Cell Distribution Width 13.6 % (11.5-14.0); White Blood Count 8.1 x10^3/uL (4.0-10.5)
[2022-08-16 10:24] LABS: ALBUMIN 3.8 g/dL (3.5-5.0); ALKALINE PHOSPHATASE 111 U/L (38-126); ANION GAP 14.1 MEQ/L (5-15); BLOOD UREA NITROGEN 13 mg/dL (7-17); CHLORIDE 105 mmol/L (98-107); Calcium 8.7 mg/dL (8.4-10.2); Carbon Dioxide 26 mmol/L (22-30); Creatinine 1 0.64 mg/dL (0.52-1.04); EST GLOMERULAR FILTRATION RATE > 60.0 ML/MIN; Glucose 197 mg/dL (74-106); Potassium 4.6 mmol/L (3.5-5.1); SGOT/AST 38 U/L (14-36); SGPT/ALT 53 U/L (0-35); SODIUM 140 mmol/L (137-145); Total Protein 7.7 g/dL (6.3-8.2)
[2022-08-16 10:33] LABS: INR 1.02 (0.8-3.0); PROTIME 11.1 SECONDS (9.4-12.5)
[2022-08-16 10:34] LABS: D-DIMER QUANTITATIVE 1.05 mg/L (0.0-0.50)
--- NOTE | 2022-08-16 10:43 | XRAY ---
Indication: Head injury following fall. Multiple contiguous axial images obtained through the head without contrast. Comparison: November 30, 2019 Again age-appropriate global atrophy with mild periventricular degenerative micro-ischemia. No acute intracranial hemorrhage, abnormal extra-axial fluid collection, or mass effect. Fourth ventricle is midline without hydrocephalus. Bony calvarium intact. Visualized paranasal sinuses and mastoid air cells are clear. Impression: Continued nonacute senile brain.
--- NOTE | 2022-08-16 10:45 | XRAY ---
Indication: Cough. Comparison: February 27, 2020 Portable chest demonstrates new lateral right base round masslike opacity at least 6 cm better evaluated with CT. Remaining heart and left lung unremarkable again with incidental calcified granuloma. Bony thorax intact again with osteopenia and mild degenerative changes.
[2022-08-16 10:48] LABS: INFLUENZA A NEGATIVE (NEGATIVE); INFLUENZA B NEGATIVE (NEGATIVE); RESPIRATORY SYNCTIAL VIRUS NEGATIVE (NEGATIVE); SARS-CoV-2 Xpert Express NEGATIVE (NEGATIVE)
[2022-08-16] MEDS ORDERED: Sodium Chloride 0.9% 500 ML 500 ML IV ONE ×2 (10:54→11:09)
[2022-08-16] MEDS ORDERED: HYDROCODONE-ACETAMIN 2.5-108/5 ML SOLUTION PO STA (11:51)
[2022-08-16] MEDS ORDERED: HYDROCODONE-ACETAMIN 2.5-108/5 ML SOLUTION ONE (11:57)
--- NOTE | 2022-08-16 12:01 | XRAY ---
Indication: Short of breath and cough. Elevated d-dimer. Multiple contiguous axial images obtained through the chest using 100 cc Isovue 370 contrast. Comparison: None Lungs demonstrate near complete right middle lobe consolidating airspace disease corresponding to same day chest radiograph abnormality. Much lesser degree seen superior segment right lower lobe. Small right effusion with right base compressive atelectasis presumed reactive. Left midlung demonstrates tiny calcified granuloma. Medial right lower lobe demonstrates 5 mm peripheral noncalcified nodule probably granulomatous. Heart is not enlarged. Aorta is normal in course and caliber. No pathologic mediastinal/hilar lymphadenopathy. Mid to distal esophagus demonstrates circumferential wall thickening possibly reflux esophagitis. Bony thorax intact with osteopenia and mild/moderate degenerative changes throughout the spine. Limited upper abdomen demonstrates 1.1 cm left lobe hepatic cyst versus hemangioma. Impression: 1. Near complete right middle lobe and minimal right lower lobe consolidating airspace disease with reactive effusion. 2. Distal esophageal circumferential wall thickening. Rule out reflux esophagitis. 3. Incidental small hepatic cyst versus hemangioma, chronic bony findings, old granulomatous disease.
[2022-08-16] MEDS ORDERED: ROCEPHIN 1 Gm-D5w 50 ml Bag** 1 G/50 ML IVPB IV STA (12:20)
[2022-08-16] MEDS ORDERED: ROCEPHIN 1 Gm-D5w 50 ml Bag** 1 G/50 ML IVPB IV ONE (12:23)
[2022-08-16] MEDS ORDERED: MORPHINE SULFATE 4 MG INJ IV ONE (12:32)
[2022-08-16] MEDS ORDERED: Zofran 4 MG/2 ML VIAL IV ONE (12:32)
[2022-08-16] MEDS ORDERED: Zofran 4 MG/2 ML VIAL ONE (12:33)
[2022-08-16] MEDS ORDERED: MORPHINE SULFATE 4 MG INJ ONE (12:33)
[2022-08-16] MEDS ORDERED: Zofran 4 MG/2 ML VIAL IV PRN (13:20)
[2022-08-16] MEDS ORDERED: TYLENOL 325 MG PO PRN (13:20)
[2022-08-16] MEDS ORDERED: DUONEB 0.5-3 MG/3 ml Neb IH PRN (14:29)
[2022-08-16] MEDS: ENOXAPARIN SODIUM SQ SCH (15:37)
[2022-08-16] MEDS: Zithromax 500 MG/ 250 ML NaCl Premix 500 MG/250 ML IVPB IV SCH (15:38)
--- NOTE | 2022-08-16 16:29 | PCM.HP ---
History of Present Illness - Chief Complaint Chief Complaint: Cough and dyspnea Date: 08/16/22 History of Present Illness: 82-year-old woman with a history of type 2 diabetes, who presents with cough and dyspnea. She notes symptoms from a few weeks ago after she fell on 08/02, but particularly in the last day or so she has had worsening dyspnea and cough productive of white sputum. Has had some intermittent fevers and nausea at home, but no sick contacts. Also has been having constant chest pain and headache since her fall, unchanged with exertion, with no focal weakness or sensory changes. She has no smoking history. - Review of Systems Constitutional: Fever, No Fatigue, No Lethargy, No Malaise, No Night Sweats Eyes: No Eye Pain, No Vision Changes Ears, Nose, & Throat: No Throat Pain Respiratory: Cough, Short Of Breath, No Orthopnea, No Wheezing Cardiac: Chest Pain, No Edema, No Palpitations Abdominal/Gastrointestinal: Nausea, Diarrhea, No Abdominal Pain, No Vomiting Genitourinary Symptoms: No Dysuria, No Frequency Musculoskeletal: No Back Pain Skin: No Rash Neurological: Headache, No Dizziness, No Focal Weakness, No Sensory Changes Medications & Allergies Home Medications: Home Medication List Simvastatin 40 mg PO HS 09/15/16 [History Confirmed 08/16/22] Doxycycline Hyclate [Vibramycin] 50 mg PO DAILY 11/30/19 [History Confirmed 08/16/22] Glimepiride 1 mg PO DAILY 11/30/19 [History Confirmed 08/16/22] Lutein Extract/Zeaxanthin Ext [Lutein 15 mg Softgel] 1 each PO DAILY 11/30/19 [History Confirmed 08/16/22] Tramadol HCl 50 mg [Ultram 50 mg] 50 mg PO Q6H PRN PRN 11/30/19 [History Confirmed 08/16/22] Vit C/E/Cuperic/Zinc/Lutein [Preservision Lutein Softgel] 1 each PO DAILY 11/30/19 [History Confirmed 08/16/22] Aspirin 81 gm Chew [Baby Aspirin 81 mg Chew] 162 mg PO DAILY PRN PRN 08/16/22 [History Confirmed 08/16/22] Desoximetasone 15 gm TP HSPRN PRN 08/16/22 [History Confirmed 08/16/22] Honey [Medihoney] 15 ml TP DAILY PRN PRN 08/16/22 [History Confirmed 08/16/22] Patient Own Med [Patient Own Medication] 1 tablet PO DAILY 08/16/22 [History Confirmed 08/16/22] Tramadol HCl 50 mg [Ultram 50 mg] 50 mg PO QID 08/16/22 [History Confirmed 08/16/22] metroNIDAZOLE [Metronidazole] 45 gm TP HS PRN PRN 08/16/22 [History Confirmed 08/16/22] Allergies/Adverse Reactions: Allergies Allergy/AdvReac Type Severity Reaction Status Date / Time celecoxib [From Celebrex] Allergy Verified 08/16/22 09:50 fenoprofen calcium Allergy Verified 08/16/22 09:50 [From Nalfon] - Past Medical History Past Medical History: Yes Neurological History: No Pertinent History ENT History: Macular Degeneration Cardiac History: High Cholesterol Endocrine Medical History: Diabetes Type II Musculoskelatal History: Osteoarthritis GI Medical History: Irritable Bowel History: No Pertinent History Pyscho-Social History: No Pertinent History Reproductive Disorders: No Pertinent History Comment: BILATERAL TOTAL KNEE REPLACEMENTS - RIGHT AND LEFT DONE AT SAME TIME APPROXIMATELY 10 YEARS AGO. 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 - Social History Smoking Status: Former smoker How long have you smoked: 6 years Exposure to second hand smoke: No Alcohol: None Drug Use: none Significant Family History: no pertinent family hx - Physical Exam Vital Signs: Vital Signs - 24 hr Temp Pulse Resp BP BP Pulse Ox 08/16/22 13:57 66 20 96 08/16/22 13:29 99.4 F 68 24 164/75 95 08/16/22 12:48 94 L 08/16/22 11:20 101 H 23 176/91 94 L 08/16/22 11:19 104 H 22 176/91 96 08/16/22 11:16 108 H 21 174/142 95 08/16/22 11:00 165/88 08/16/22 10:39 101 H 17 158/77 08/16/22 10:25 108 H 34 H 168/52 08/16/22 09:47 94 L 08/16/22 09:44 97.8 F 100 H 22 176/84 94 L 08/16/22 09:43 24 91 L General Appearance: no apparent distress Neurologic Exam: alert, oriented x 3 Eye Exam: eyes nml inspection Respiratory Exam: normal breath sounds, lungs clear, No accessory muscle use, No wheezing Cardiovascular Exam: irregular (Normal rate), No murmur, No edema Gastrointestinal/Abdomen Exam: soft, No tenderness, No distention Results - Labs Lab/Micro Results: Lab Results-Last 24 Hours 08/16/22 08/16/22 08/16/22 Range/Units 10:09 10:09 10:09 WBC 8.1 (4.0-10.5) x10^3/uL RBC 3.85 L (4.1-5.4) x10^6/uL Hgb 11.5 L (12.0-16.0) g/dL Hct 36.7 (35-47) % MCV 95.3 (78-100) fL MCH 29.9 (26-32) pg MCHC 31.3 L (32-36) g/dL RDW 13.6 (11.5-14.0) % Plt Count 268 (150-450) x10^3/uL MPV 10.2 (7.5-11.0) fL Gran % 72.9 H (36.0-66.0) % Immature Gran % (Auto) 0.2 (0.00-0.4) % Nucleat RBC Rel Count 0.0 (0.00-0.1) % Eos # (Auto) 0.17 (0-0.5) x10^3/uL Immature Gran # (Auto) 0.02 (0.00-0.03) x10^3u/L Absolute Lymphs (auto) 1.19 (1.0-4.6) x10^3/uL Absolute Monos (auto) 0.80 (0.0-1.3) x10^3/uL Absolute Nucleated RBC 0.00 (0.00-0.01) x10^3u/L Lymphocytes % 14.8 L (24.0-44.0) % Monocytes % 9.9 (0.0-12.0) % Eosinophils % 2.1 (0.00-5.0) % Basophils % 0.1 (0.0-0.4) % Absolute Granulocytes 5.87 (1.4-6.9) x10^3/uL Basophils # 0.01 (0-0.4) x10^3/uL PT 11.1 (9.4-12.5) SECONDS INR 1.02 (0.8-3.0) D-Dimer 1.05 H* (0.0-0.50) mg/L Sodium 140 (137-145) mmol/L Potassium 4.6 (3.5-5.1) mmol/L Chloride 105 (98-107) mmol/L Carbon Dioxide 26 (22-30) mmol/L Anion Gap 14.1 (5-15) MEQ/L BUN 13 (7-17) mg/dL Creatinine 0.64 (0.52-1.04) mg/dL Estimated GFR > 60.0 ML/MIN Glucose 197 H (74-106) mg/dL POC Glucometer (74 to 106) mg/dL Calcium 8.7 (8.4-10.2) mg/dL Total Bilirubin 0.60 (0.2-1.3) mg/dL AST 38 H (14-36) U/L ALT 53 H (0-35) U/L Alkaline Phosphatase 111 (38-126) U/L Troponin I (0.000-0.034) ng/mL NT-Pro-B Natriuret Pep (<300) pg/mL Serum Total Protein 7.7 (6.3-8.2) g/dL Albumin 3.8 (3.5-5.0) g/dL Influenza Type A Ag (NEGATIVE) Influenza Type B Ag (NEGATIVE) RSV (PCR) (NEGATIVE) SARS-CoV-2 (PCR) (NEGATIVE) 08/16/22 08/16/22 08/16/22 Range/Units 10:09 10:09 10:09 WBC (4.0-10.5) x10^3/uL RBC (4.1-5.4) x10^6/uL Hgb (12.0-16.0) g/dL Hct (35-47) % MCV (78-100) fL MCH (26-32) pg MCHC (32-36) g/dL RDW (11.5-14.0) % Plt Count (150-450) x10^3/uL MPV (7.5-11.0) fL Gran % (36.0-66.0) % Immature Gran % (Auto) (0.00-0.4) % Nucleat RBC Rel Count (0.00-0.1) % Eos # (Auto) (0-0.5) x10^3/uL Immature Gran # (Auto) (0.00-0.03) x10^3u/L Absolute Lymphs (auto) (1.0-4.6) x10^3/uL Absolute Monos (auto) (0.0-1.3) x10^3/uL Absolute Nucleated RBC (0.00-0.01) x10^3u/L Lymphocytes % (24.0-44.0) % Monocytes % (0.0-12.0) % Eosinophils % (0.00-5.0) % Basophils % (0.0-0.4) % Absolute Granulocytes (1.4-6.9) x10^3/uL Basophils # (0-0.4) x10^3/uL PT (9.4-12.5) SECONDS INR (0.8-3.0) D-Dimer (0.0-0.50) mg/L Sodium (137-145) mmol/L Potassium (3.5-5.1) mmol/L Chloride (98-107) mmol/L Carbon Dioxide (22-30) mmol/L Anion Gap (5-15) MEQ/L BUN (7-17) mg/dL Creatinine (0.52-1.04) mg/dL Estimated GFR ML/MIN Glucose (74-106) mg/dL POC Glucometer (74 to 106) mg/dL Calcium (8.4-10.2) mg/dL Total Bilirubin (0.2-1.3) mg/dL AST (14-36) U/L ALT (0-35) U/L Alkaline Phosphatase (38-126) U/L Troponin I < 0.012 (0.000-0.034) ng/mL NT-Pro-B Natriuret Pep 1530 (<300) pg/mL Serum Total Protein (6.3-8.2) g/dL Albumin (3.5-5.0) g/dL Influenza Type A Ag NEGATIVE (NEGATIVE) Influenza Type B Ag NEGATIVE (NEGATIVE) RSV (PCR) NEGATIVE (NEGATIVE) SARS-CoV-2 (PCR) NEGATIVE (NEGATIVE) 08/16/22 08/16/22 Range/Units 14:07 14:43 WBC (4.0-10.5) x10^3/uL RBC (4.1-5.4) x10^6/uL Hgb (12.0-16.0) g/dL Hct (35-47) % MCV (78-100) fL MCH (26-32) pg MCHC (32-36) g/dL RDW (11.5-14.0) % Plt Count (150-450) x10^3/uL MPV (7.5-11.0) fL Gran % (36.0-66.0) % Immature Gran % (Auto) (0.00-0.4) % Nucleat RBC Rel Count (0.00-0.1) % Eos # (Auto) (0-0.5) x10^3/uL Immature Gran # (Auto) (0.00-0.03) x10^3u/L Absolute Lymphs (auto) (1.0-4.6) x10^3/uL Absolute Monos (auto) (0.0-1.3) x10^3/uL Absolute Nucleated RBC (0.00-0.01) x10^3u/L Lymphocytes % (24.0-44.0) % Monocytes % (0.0-12.0) % Eosinophils % (0.00-5.0) % Basophils % (0.0-0.4) % Absolute Granulocytes (1.4-6.9) x10^3/uL Basophils # (0-0.4) x10^3/uL PT (9.4-12.5) SECONDS INR (0.8-3.0) D-Dimer (0.0-0.50) mg/L Sodium (137-145) mmol/L Potassium (3.5-5.1) mmol/L Chloride (98-107) mmol/L Carbon Dioxide (22-30) mmol/L Anion Gap (5-15) MEQ/L BUN (7-17) mg/dL Creatinine (0.52-1.04) mg/dL Estimated GFR ML/MIN Glucose (74-106) mg/dL POC Glucometer 182 H (74 to 106) mg/dL Calcium (8.4-10.2) mg/dL Total Bilirubin (0.2-1.3) mg/dL AST (14-36) U/L ALT (0-35) U/L Alkaline Phosphatase (38-126) U/L Troponin I < 0.012 (0.000-0.034) ng/mL NT-Pro-B Natriuret Pep (<300) pg/mL Serum Total Protein (6.3-8.2) g/dL Albumin (3.5-5.0) g/dL Influenza Type A Ag (NEGATIVE) Influenza Type B Ag (NEGATIVE) RSV (PCR) (NEGATIVE) SARS-CoV-2 (PCR) (NEGATIVE) - Radiology Impressions Radiology Exams & Impressions: Radiology Procedures Category Date Time Status CHEST 1 VIEW (PORTABLE) Stat Exams 08/16/22 09:47 Completed CHEST WITH CONTRAST [CT] Stat Exams 08/16/22 10:54 Completed HEAD WITHOUT CONTRAST [CT] Stat Exams 08/16/22 09:[address] chest right middle lobe complete consolidation with some remaining right lower lobe consolidation and adjacent effusion. CT head no acute intracranial hemorrhage, extra-axial fluid collection, or mass effect - Other Procedures and Tests Respiratory Therapy 08/16/22 13:55 Oxygen Nasal Cannula 2 lpm 08/16/22 13:57 Respiratory Therapy Assessment DAILY 08/16/22 16:03 EKG ROUTINE Assessment/Plan (1) Pneumonia involving right lung Current Visit: Yes Status: Acute Assessment & Plan: 82-year-old woman with a history of type 2 diabetes and acne rosacea, who presents with cough and dyspnea and found to have pneumonia ## Pneumonia right middle lobar pneumonia. Was briefly weaned to room air in the ED, but now back on 2 L oxygen. Empiric Rocephin and azithromycin, day 1 Follow-up sputum cultures, blood cultures Wean oxygen as tolerated to maintain SpO2 greater than 91% ## Chest pain atypical for ACS. Serial troponins are negative. ## Irregular heart rhythm no known history of A-fib. Check EKG to see if frequent PACs, PVCs, or A-fib Monitor on telemetry ## Type 2 diabetes only requiring glimepiride at home. Placed on moderate dose sliding scale insulin CODE STATUS: Full code Prophylaxis: Lovenox 40 mg daily Entirety of encounter took place via telemedicine. Patient consented to telemedicine. Code(s): J18.9 - PNEUMONIA, UNSPECIFIED ORGANISM Telemedicine Encounter - Telemedicine Encounter Telemedicine Encounter: The entirety of this encounter was performed via Telemedicine"
[2022-08-16] MEDS: ZOCOR 20MG PO SCH (22:38)
[2022-08-16] MEDS: HUMULIN R SQ PRN (22:41)
[2022-08-17 05:00] LABS: Absolute Neutrophil Ct (ANC) 5.28 x10^3/uL (1.4-6.9); BASOPHIL % 0.3 % (0.0-0.4); Basophil (Absolute #) 0.02 x10^3/uL (0-0.4); Eosinophil % 2.6 % (0.00-5.0); Hematocrit 33.4 % (35-47); Hemoglobin 10.4 g/dL (12.0-16.0); IMMATURE GRAN # 0.02 x10^3u/L (0.00-0.03); IMMATURE GRAN % 0.3 % (0.00-0.4); Lymphocyte (Absolute #) 1.29 x10^3/uL (1.0-4.6); Lymphocytes % 16.9 % (24.0-44.0); Mean Cell Volume 96.5 fL (78-100); Mean Corpuscular Hemoglobin 30.1 pg (26-32); Mean Corpuscular Hgb Concent. 31.1 g/dL (32-36); Mean Platelet Volume 10.4 fL (7.5-11.0); Monocyte (Absolute #) 0.83 x10^3/uL (0.0-1.3); Monocytes % 10.9 % (0.0-12.0); Platelet Count 284 x10^3/uL (150-450); Red Blood Count 3.46 x10^6/uL (4.1-5.4); Red Cell Distribution Width 13.6 % (11.5-14.0); White Blood Count 7.6 x10^3/uL (4.0-10.5)
[2022-08-17 05:21] LABS: ALBUMIN 3.4 g/dL (3.5-5.0); BILIRUBIN,TOTAL 0.6 mg/dL (0.2-1.3)
[2022-08-17 05:28] LABS: ISTAT CREA 0.6 mg/dL (0.6-1.3); ISTAT K 4.7 mmol/L (3.5-4.9); ISTAT iCA 1.11 mmol/L (1.12-1.32)
[2022-08-17] MEDS: ENOXAPARIN SODIUM SQ SCH (09:24)
[2022-08-17] MEDS: HUMULIN R SQ PRN ×3 (09:25→21:21)
[2022-08-17] MEDS: ROCEPHIN 1 Gm-D5w 50 ml Bag** 1 G/50 ML IVPB IV SCH (09:25)
[2022-08-17] MEDS: Zithromax 500 MG/ 250 ML NaCl Premix 500 MG/250 ML IVPB IV SCH (11:20)
--- NOTE | 2022-08-17 15:53 | PCM.NOTE ---
Date and Time: 08/17/22 1547 Subjective Assessment: No acute events overnight. Still feels pretty poorly, but weaned to room air. Sitting in the chair without any nausea, and able to walk to the bathroom. Has a moderate appetite. Still has significant cough. Objective Exam General Appearance: no apparent distress Neurologic Exam: alert, oriented x 3 Skin Exam: No rash Wound Assessment: Skin/Wound Assessment Wound/Incision Assessment Start: 08/16/22 14:50 Text: Status: Active Freq: Q6H Protocol: Document 08/17/22 14:00 AR (Rec: 08/17/22 14:26 AR [id number]) Wound Photo Photo Taken No Respiratory Exam: normal breath sounds, lungs clear, other (On room air), No respiratory distress Cardiovascular Exam: regular rate/rhythm, No murmur, No edema OBJECTIVE DATA Vital Signs: Vital Signs - 24 hr Temp Pulse Resp BP Pulse Ox 08/17/22 12:00 97.7 F 73 16 145/67 92 L 08/17/22 07:20 97.6 F 82 16 137/67 94 L 08/17/22 04:00 97.7 F 82 18 130/60 91 L 08/16/22 23:23 97.5 F 66 18 125/60 94 L 08/16/22 19:13 97.3 F 97 H 18 134/67 95 08/16/22 18:55 75 16 96 08/16/22 16:00 97.0 F 80 22 134/80 96 Pain Assessment - Last Documented Pain Intensity 0 Pain Scale Used 0-10 Pain Scale Intake and Output: Intake & Output 08/15/22 08/16/22 08/17/22 08/18/22 11:59 11:59 11:59 11:59 Intake Total 1350 480 Output Total 800 Balance 550 480 Weight 101 kg 100.6 kg Lab Results: Lab Results-Last 24 Hours 08/16/22 08/16/22 08/16/22 Range/Units 16:23 18:20 21:47 WBC (4.0-10.5) x10^3/uL RBC (4.1-5.4) x10^6/uL Hgb (12.0-16.0) g/dL Hct (35-47) % MCV (78-100) fL MCH (26-32) pg MCHC (32-36) g/dL RDW (11.5-14.0) % Plt Count (150-450) x10^3/uL MPV (7.5-11.0) fL Gran % (36.0-66.0) % Immature Gran % (Auto) (0.00-0.4) % Nucleat RBC Rel Count (0.00-0.1) % Eos # (Auto) (0-0.5) x10^3/uL Immature Gran # (Auto) (0.00-0.03) x10^3u/L Absolute Lymphs (auto) (1.0-4.6) x10^3/uL Absolute Monos (auto) (0.0-1.3) x10^3/uL Absolute Nucleated RBC (0.00-0.01) x10^3u/L Lymphocytes % (24.0-44.0) % Monocytes % (0.0-12.0) % Eosinophils % (0.00-5.0) % Basophils % (0.0-0.4) % Absolute Granulocytes (1.4-6.9) x10^3/uL Basophils # (0-0.4) x10^3/uL Sodium Direct (138-146) mmol/L Potassium (3.5-4.9) mmol/L Chloride (98-109) mmol/L Carbon Dioxide (24-29) mmol/L Venous BUN (8-26) mg/dL Creatinine (0.6-1.3) mg/dL Glucose (70-105) mg/dL POC Glucometer 173 H 267 H (74 to 106) mg/dL Ionized Calcium (1.12-1.32) mmol/L Total Bilirubin (0.2-1.3) mg/dL AST (14-36) U/L ALT (0-35) U/L Alkaline Phosphatase (38-126) U/L Troponin I < 0.012 (0.000-0.034) ng/mL Serum Total Protein (6.3-8.2) g/dL Albumin (3.5-5.0) g/dL 08/17/22 08/17/22 08/17/22 Range/Units 04:41 04:41 07:28 WBC 7.6 (4.0-10.5) x10^3/uL RBC 3.46 L (4.1-5.4) x10^6/uL Hgb 10.4 L (12.0-16.0) g/dL Hct 33.4 L (35-47) % MCV 96.5 (78-100) fL MCH 30.1 (26-32) pg MCHC 31.1 L (32-36) g/dL RDW 13.6 (11.5-14.0) % Plt Count 284 (150-450) x10^3/uL MPV 10.4 (7.5-11.0) fL Gran % 69.0 H (36.0-66.0) % Immature Gran % (Auto) 0.3 (0.00-0.4) % Nucleat RBC Rel Count 0.0 (0.00-0.1) % Eos # (Auto) 0.20 (0-0.5) x10^3/uL Immature Gran # (Auto) 0.02 (0.00-0.03) x10^3u/L Absolute Lymphs (auto) 1.29 (1.0-4.6) x10^3/uL Absolute Monos (auto) 0.83 (0.0-1.3) x10^3/uL Absolute Nucleated RBC 0.00 (0.00-0.01) x10^3u/L Lymphocytes % 16.9 L (24.0-44.0) % Monocytes % 10.9 (0.0-12.0) % Eosinophils % 2.6 (0.00-5.0) % Basophils % 0.3 (0.0-0.4) % Absolute Granulocytes 5.28 (1.4-6.9) x10^3/uL Basophils # 0.02 (0-0.4) x10^3/uL Sodium Direct 137 L (138-146) mmol/L Potassium 4.7 (3.5-4.9) mmol/L Chloride 103 (98-109) mmol/L Carbon Dioxide 24 (24-29) mmol/L Venous BUN 15 (8-26) mg/dL Creatinine 0.6 (0.6-1.3) mg/dL Glucose 154 H (70-105) mg/dL POC Glucometer 176 H (74 to 106) mg/dL Ionized Calcium 1.11 L (1.12-1.32) mmol/L Total Bilirubin 0.60 (0.2-1.3) mg/dL AST 50 H (14-36) U/L ALT 55 H (0-35) U/L Alkaline Phosphatase 108 (38-126) U/L Troponin I (0.000-0.034) ng/mL Serum Total Protein 7.0 (6.3-8.2) g/dL Albumin 3.4 L (3.5-5.0) g/dL 08/17/22 Range/Units 11:51 WBC (4.0-10.5) x10^3/uL RBC (4.1-5.4) x10^6/uL Hgb (12.0-16.0) g/dL Hct (35-47) % MCV (78-100) fL MCH (26-32) pg MCHC (32-36) g/dL RDW (11.5-14.0) % Plt Count (150-450) x10^3/uL MPV (7.5-11.0) fL Gran % (36.0-66.0) % Immature Gran % (Auto) (0.00-0.4) % Nucleat RBC Rel Count (0.00-0.1) % Eos # (Auto) (0-0.5) x10^3/uL Immature Gran # (Auto) (0.00-0.03) x10^3u/L Absolute Lymphs (auto) (1.0-4.6) x10^3/uL Absolute Monos (auto) (0.0-1.3) x10^3/uL Absolute Nucleated RBC (0.00-0.01) x10^3u/L Lymphocytes % (24.0-44.0) % Monocytes % (0.0-12.0) % Eosinophils % (0.00-5.0) % Basophils % (0.0-0.4) % Absolute Granulocytes (1.4-6.9) x10^3/uL Basophils # (0-0.4) x10^3/uL Sodium Direct (138-146) mmol/L Potassium (3.5-4.9) mmol/L Chloride (98-109) mmol/L Carbon Dioxide (24-29) mmol/L Venous BUN (8-26) mg/dL Creatinine (0.6-1.3) mg/dL Glucose (70-105) mg/dL POC Glucometer 305 H (74 to 106) mg/dL Ionized Calcium (1.12-1.32) mmol/L Total Bilirubin (0.2-1.3) mg/dL AST (14-36) U/L ALT (0-35) U/L Alkaline Phosphatase (38-126) U/L Troponin I (0.000-0.034) ng/mL Serum Total Protein (6.3-8.2) g/dL Albumin (3.5-5.0) g/dL Radiology Exams: Radiology Procedures Category Date Time Status CHEST 1 VIEW (PORTABLE) Stat Exams 08/16/22 09:47 Completed CHEST WITH CONTRAST [CT] Stat Exams 08/16/22 10:54 Completed HEAD WITHOUT CONTRAST [CT] Stat Exams 08/16/22 09:48 Completed Assessment/Plan (1) Pneumonia involving right lung Current Visit: Yes Status: Acute Assessment & Plan: 82-year-old woman with a history of type 2 diabetes and acne rosacea, who presents with cough and dyspnea and found to have pneumonia ## Pneumonia right middle lobar pneumonia. Improving today, weaned to room air. Ambulating somewhat, although not back to her baseline yet. Gram stain on reflective, still pending sputum culture. Continue empiric Rocephin and azithromycin, day 2 Follow-up sputum cultures, blood cultures ## Chest pain atypical for ACS. Serial troponins are negative. ## Irregular heart rhythm reviewed on telemetry and multiple EKGs. Patient has sinus rhythm, with frequent PACs. No evidence of A-fib. Rate is better controlled now that her pneumonia is being treated. ## Type 2 diabetes only requiring glimepiride at home. Glucose levels running little higher today. Continue moderate dose sliding scale insulin CODE STATUS: Full code Prophylaxis: Lovenox 40 mg daily Entirety of encounter took place via telemedicine. Patient consented to telemedicine. Code(s): J18.9 - PNEUMONIA, UNSPECIFIED ORGANISM Telemedicine Encounter - Telemedicine Encounter Telemedicine Encounter: The entirety of this encounter was performed via Telemedicine"
[2022-08-17] MEDS: HYDROCODONE-ACETAMIN 2.5-108/5 ML SOLUTION PO PRN ×2 (16:57→21:22)
[2022-08-17] MEDS: ZOCOR 20MG PO SCH (21:21)
[2022-08-18 05:20] LABS: Hematocrit 35.5 % (35-47); Hemoglobin 11.1 g/dL (12.0-16.0); Mean Cell Volume 95.2 fL (78-100); Mean Corpuscular Hemoglobin 29.8 pg (26-32); Mean Corpuscular Hgb Concent. 31.3 g/dL (32-36); Mean Platelet Volume 10.2 fL (7.5-11.0); Platelet Count 327 x10^3/uL (150-450); Red Blood Count 3.73 x10^6/uL (4.1-5.4); Red Cell Distribution Width 13.6 % (11.5-14.0); White Blood Count 8.4 x10^3/uL (4.0-10.5)
[2022-08-18 05:55] LABS: ANION GAP 15.2 MEQ/L (5-15); BLOOD UREA NITROGEN 17 mg/dL (7-17); CHLORIDE 101 mmol/L (98-107); Calcium 8.8 mg/dL (8.4-10.2); Carbon Dioxide 24 mmol/L (22-30); Creatinine 1 0.55 mg/dL (0.52-1.04); EST GLOMERULAR FILTRATION RATE > 60.0 ML/MIN; Glucose 225 mg/dL (74-106); Potassium 4.6 mmol/L (3.5-5.1); SODIUM 136 mmol/L (137-145)
[2022-08-18] MEDS: HUMULIN R SQ PRN ×2 (08:31→12:31)
[2022-08-18] MEDS: ROCEPHIN 1 Gm-D5w 50 ml Bag** 1 G/50 ML IVPB IV SCH (09:15)
[2022-08-18] MEDS: ENOXAPARIN SODIUM SQ SCH (09:15)
[2022-08-18] MEDS: Zithromax 500 MG/ 250 ML NaCl Premix 500 MG/250 ML IVPB IV SCH (10:03)
--- NOTE | 2022-08-18 10:29 | PCM.DS ---
Discharge Summary Date of Admission: 08/16/22 13:08 Date of Discharge: 08/18/2022 Admitting Physician: ZHANNA ALVARENGA MD Primary Care Provider: QUOC DESHPANDE Allergies Allergies celecoxib [From Celebrex] Allergy (Verified 08/16/22 09:50) fenoprofen calcium [From Nalfon] Allergy (Verified 08/16/22 09:50) Hospital Summary - Hospital Course Hospital Course: 82-year-old with a history of diabetes who presented with a few days of worsening cough and dyspnea, found to have a right middle lobe pneumonia. Was briefly on oxygen, but quickly weaned off. She was started on empiric Rocephin and azithromycin, with improvement in her symptoms. She was able to sit up without difficulty, and ambulate to the bathroom on room air. She will be discharged to complete a 7-day course of antibiotics, ending on 08/22. She had an irregular heart rhythm, but on EKG and telemetry she was only found to have frequent PACs. - Vitals & Intake/Output Vital Signs: Vital Signs Temperature 97.5 F 08/18/22 07:12 Pulse Rate 75 08/18/22 07:55 Respiratory Rate 18 08/18/22 07:55 Blood Pressure 143/76 08/18/22 07:12 O2 Sat by Pulse Oximetry 91 L 08/18/22 07:55 Intake & Output: Intake & Output 08/15/22 08/16/22 08/17/22 08/18/22 11:59 11:59 11:59 11:59 Intake Total 1350 1820 Output Total 800 Balance 550 1820 Weight 101 kg 100.6 kg 102.1 kg - Lab Result Diagrams: 08/18/22 05:04 08/18/22 05:04 Lab Results-Last 24 Hrs: Lab Results-Last 24 Hours 08/17/22 08/17/22 08/17/22 Range/Units 11:51 16:40 16:46 WBC (4.0-10.5) x10^3/uL RBC (4.1-5.4) x10^6/uL Hgb (12.0-16.0) g/dL Hct (35-47) % MCV (78-100) fL MCH (26-32) pg MCHC (32-36) g/dL RDW (11.5-14.0) % Plt Count (150-450) x10^3/uL MPV (7.5-11.0) fL Sodium (137-145) mmol/L Potassium (3.5-5.1) mmol/L Chloride (98-107) mmol/L Carbon Dioxide (22-30) mmol/L Anion Gap (5-15) MEQ/L BUN (7-17) mg/dL Creatinine (0.52-1.04) mg/dL Estimated GFR ML/MIN Glucose (74-106) mg/dL POC Glucometer 305 H 183 H (74 to 106) mg/dL Hemoglobin A1c 7.37 H (4.5-6.0) % Calcium (8.4-10.2) mg/dL 08/17/22 08/18/22 08/18/22 Range/Units 20:37 05:04 05:04 WBC 8.4 (4.0-10.5) x10^3/uL RBC 3.73 L (4.1-5.4) x10^6/uL Hgb 11.1 L (12.0-16.0) g/dL Hct 35.5 (35-47) % MCV 95.2 (78-100) fL MCH 29.8 (26-32) pg MCHC 31.3 L (32-36) g/dL RDW 13.6 (11.5-14.0) % Plt Count 327 (150-450) x10^3/uL MPV 10.2 (7.5-11.0) fL Sodium 136 L (137-145) mmol/L Potassium 4.6 (3.5-5.1) mmol/L Chloride 101 (98-107) mmol/L Carbon Dioxide 24 (22-30) mmol/L Anion Gap 15.2 H (5-15) MEQ/L BUN 17 (7-17) mg/dL Creatinine 0.55 (0.52-1.04) mg/dL Estimated GFR > 60.0 ML/MIN Glucose 225 H (74-106) mg/dL POC Glucometer 239 H (74 to 106) mg/dL Hemoglobin A1c (4.5-6.0) % Calcium 8.8 (8.4-10.2) mg/dL 08/18/22 Range/Units 06:54 WBC (4.0-10.5) x10^3/uL RBC (4.1-5.4) x10^6/uL Hgb (12.0-16.0) g/dL Hct (35-47) % MCV (78-100) fL MCH (26-32) pg MCHC (32-36) g/dL RDW (11.5-14.0) % Plt Count (150-450) x10^3/uL MPV (7.5-11.0) fL Sodium (137-145) mmol/L Potassium (3.5-5.1) mmol/L Chloride (98-107) mmol/L Carbon Dioxide (22-30) mmol/L Anion Gap (5-15) MEQ/L BUN (7-17) mg/dL Creatinine (0.52-1.04) mg/dL Estimated GFR ML/MIN Glucose (74-106) mg/dL POC Glucometer 220 H (74 to 106) mg/dL Hemoglobin A1c (4.5-6.0) % Calcium (8.4-10.2) mg/dL Micro Results-Entire Visit: Microbiology 08/16/22 19:20 Gram Stain - Final Sputum - Expectorant Accuchecks Date 08/18/22 Date 08/17/22 Date 08/17/22 Date 08/17/22 Time 07:12 Time 20:25 Time 17:01 Time 12:37 - Radiology Exams Ordered Rad Exams-Entire Visit: Radiology Procedures Category Date Time Status CHEST 1 VIEW (PORTABLE) Stat Exams 08/16/22 09:47 Completed CHEST WITH CONTRAST [CT] Stat Exams 08/16/22 10:54 Completed HEAD WITHOUT CONTRAST [CT] Stat Exams 08/16/22 09:[address] chest: Near complete right middle lobe and minimal right lower lobe co nsolidation with reactive effusion. CT head: Age-appropriate global atrophy, but no acute intracranial hemorrhage, abnormal extra-axial fluid collection, or mass effect. - Procedures and Test Procedures and Tests throughout Hospitalization: Therapy Orders & Screens 08/16/22 13:20 Respiratory Therapy Consult ONCE Comment: Reason For Exam: 08/16/22 13:55 Oxygen Nasal Cannula 2 lpm Comment: Diagnosis: RIGHT SIDED PNE 08/16/22 13:57 Respiratory Therapy Assessment DAILY Comment: Diagnosis: RIGHT SIDED PNE 08/16/22 14:50 OT Screen per Nursing Assess ONCE Comment: Protocol Order Physician Instructions: Greater than 3 points order OT Admission Screening Reason For Exam: Triggered on Admission Diagnosis: RIGHT SIDED PNE Open Wound/Cellutlitis/Pressure Ulcers: Yes Acute Fx/ORIF/Change in wt bearing status: No Severe MUSCULOSKELETAL pain: No ADL Dysfunction: No Acute CVA w/Hemiparesis/Hemiplegia: No Decreased Functional Mobility/Strength: No Sprain/Strain: No Acute Post-op Mobility Dysfunction: No Total Points: 5 PT Screen per Nursing Assess ONCE Comment: Protocol Order Physician Instructions: Greater than 3 points order PT Admission Screenin Reason For Exam: Triggered on Admission Diagnosis: RIGHT SIDED PNE Open Wound/Cellutlitis/Pressure Ulcers: Yes Acute Fx/ORIF/Change in wt bearing status: No Severe MUSCULOSKELETAL pain: No ADL Dysfunction: No Acute CVA w/Hemiparesis/Hemiplegia: No Decreased Functional Mobility/Strength: No Sprain/Strain: No Acute Post-op Mobility Dysfunction: No Total Points: 5 08/16/22 16:03 EKG ROUTINE Comment: Diagnosis: RIGHT SIDED PNE Discharge Exam General Appearance: no apparent distress Neurologic Exam: alert, normal mood/affect, No motor deficits, No sensory deficit Eye Exam: eyes nml inspection Respiratory Exam: normal breath sounds, lungs clear, No respiratory distress Cardiovascular Exam: regular rate/rhythm (Prior irregularity has resolved), No murmur, No edema Gastrointestinal/Abdomen Exam: soft, No tenderness, No distention Wound Assessment: Skin/Wound Assessment Wound/Incision Assessment Start: 08/16/22 14:50 Text: Status: Active Freq: Q6H Protocol: Document 08/18/22 08:00 GWENDOLYN (Rec: 08/18/22 08:23 GWENDOLYN [id number]) Wound Photo Photo Taken Yes Date: 08/16/22 Final Diagnosis/Problem List - Final Discharge Diagnosis/Problem (1) Pneumonia involving right lung Current Visit: Yes Status: Acute Code(s): J18.9 - PNEUMONIA, UNSPECIFIED OR GANISM - Discharge Discharge Date: 08/18/22 Disposition: Home, Self-Care Condition: Fair Prescriptions: New Azithromycin 250 mg PO DAILY #2 tablet Cefdinir 300 mg PO BID #8 cap Continue Simvastatin 40 mg PO HS Glimepiride 1 mg PO DAILY Doxycycline Hyclate [Vibramycin] 50 mg PO DAILY Tramadol HCl 50 mg [Ultram 50 mg] 50 mg PO Q6H PRN PRN PRN Reason: Pain Lutein Extract/Zeaxanthin Ext [Lutein 15 mg Softgel] 1 each PO DAILY Vit C/E/Cuperic/Zinc/Lutein [Preservision Lutein Softgel] 1 each PO DAILY metroNIDAZOLE [Metronidazole] 45 gm TP HS PRN PRN PRN Reason: Redness/Irritation Honey [Medihoney] 15 ml TP DAILY PRN PRN PRN Reason: Redness/Irritation Desoximetasone 15 gm TP HSPRN PRN PRN Reason: Redness/Irritation Aspirin 81 gm Chew [Baby Aspirin 81 mg Chew] 162 mg PO DAILY PRN PRN PRN Reason: Chest Pain Patient Own Med [Patient Own Medication] 1 tablet PO DAILY Additional Instructions: You are being prescribed two antibiotics: 1) Take azithromcyin once a day for two days, on 08/19 and Sunday 08/20 2) Take cefdinir twice a day for four more days through Tuesday 08/22 Follow up with: QUOC DESHPANDE [Primary Care Provider] - 08/30/22 2:30 pm
[2022-08-18 11:46] VITALS: BP 139/66; PULSE 76; O2SAT 93
== END 2022-08-18 13:35 | disposition home or self-care (01) ==
LOC: ED 09:39 → MED SURG 13:08
PROVIDERS: ADMIT Internal Medicine; ATTEND Internal Medicine
DX: J18.9 Pneumonia, unspecified organism (principal); E11.9 Type 2 diabetes mellitus without complications; R07.9 Chest pain, unspecified; R00.0 Tachycardia, unspecified; E78.5 Hyperlipidemia, unspecified; W19.XXXD Unspecified fall, subsequent encounter; Z85.828 Personal history of other malignant neoplasm of skin; Z20.828 Contact with and (suspected) exposure to other viral communicable diseases; Z79.899 Other long term (current) drug therapy
CPT/HCPCS: 0241U; 36000; 36415; 70450; 71045; 71260; 80047; 80048; 80053; 82040; 82247; 82947; 83036; 83521; 83880; 84075; 84450; 84460; 84484; 85025; 85027; 85379; 85610; 87070; 93005; 94760; 96365; 96374; 96375; 99285; Q3014; J0456; J0696; J1650; J1815; J2270; J2405; A9270-GY

== ENCOUNTER 2023-10-24 20:36 | Emergency (ER) | payer MEDICARE ==
[2023-10-24 21:04] VITALS: RESP 18; TEMP 98.3
--- NOTE | 2023-10-24 21:14 | ERPHSYRPT ---
- History of Present Illness Time Seen by Provider: 10/24/23 21:01 Source: patient, family Exam Limitations: no limitations Patient Subjective Stated Complaint: pt states she fell backward while walking and hit her head on a rock and has pain in her lt shoulder, elbow and neck Triage Nursing Assessment: pt alert and oriented, answers questions approp. pt back to room per wheelchair and transfers to stretcher with minimal assist. respirations nonlabored. skin warm and dry. no bruising or deformity noted to lt shoulder or elbow. cap refill and radial pulse wnl. pupils equal and reactive. no hematoma or open area on back of head. Physician History: 83 years old female with history of hypertension, hyperlipidemia, diabetes mellitus, issues with balance, needing cane or walker for ambulation, was holding something while coming couple of steps from the dec, got unbalanced and fell backward, hit her head against a rock. No loss of consciousness. She is complaining ofK mild headache, neck pain left shoulder and left hip pain. Also hit her elbows but no difficulty movements. Patient was able to get up and ambulate/weightbearing. Denies feeling dizzy lightheaded or chest pain palpitations before or after the fall. No abdominal pain nausea or vomiting. Allergies/Adverse Reactions: celecoxib [From Celebrex] Allergy (Verified 10/24/23 21:04) fenoprofen calcium [From Nalfon] Allergy (Verified 10/24/23 21:04) Home Medications: Simvastatin 40 mg PO HS 09/15/16 [History] Doxycycline Hyclate [Vibramycin] 50 mg PO DAILY 11/30/19 [History] Glimepiride 1 mg PO DAILY 11/30/19 [History] Tramadol HCl 50 mg [Ultram 50 mg] 50 mg PO Q6H PRN PRN 11/30/19 [History] Vit C/E/Cuperic/Zinc/Lutein [Preservision Lutein Softgel] 1 each PO DAILY 11/30/19 [History] Aspirin 81 gm Chew [Baby Aspirin 81 mg Chew] 81 mg PO DAILY PRN PRN 08/16/22 [History] Desoximetasone 15 gm TP HSPRN PRN 08/16/22 [History] Patient Own Med [Patient Own Medication] 1 tablet PO DAILY 08/16/22 [History] Diclofenac Sodium [Voltaren Arthritis Pain] 20 gm TP DAILY PRN PRN 10/24/23 [History] Hx Tetanus, Diphtheria Vaccination/Date Given: No Hx Influenza Vaccination/Date Given: No Hx Pneumococcal Vaccination/Date Given: Yes Immunizations Up to Date: No Travel Risk - International Travel Have you traveled outside of the country in past 3 weeks: No - Emerging Infectious Disease Are you exhibiting symptoms associated with any current EIDs: No - Review of Systems Constitutional: No Symptoms Eyes: No Symptoms Ears, Nose, & Throat: No Symptoms Respiratory: No Symptoms Cardiac: No Symptoms Abdominal/Gastrointestinal: No Symptoms Genitourinary Symptoms: No Symptoms Musculoskeletal: Neck Pain, Fall, Injury, Joint Pain Skin: No Symptoms Neurological: Headache Endocrine: No Symptoms Hematologic/Lymphatic: No Symptoms Immunological/Allergic: No Symptoms - Past Medical History Pertinent Past Medical History: Yes Neurological History: No Pertinent History ENT History: Macular Degeneration Cardiac History: Arrhythmia, High Cholesterol Respiratory History: Pneumonia Endocrine Medical History: Diabetes Type II Musculoskeletal History: Osteoarthritis GI Medical History: Irritable Bowel History: No Pertinent History Psycho-Social History: No Pertinent History Female Reproductive Disorders: No Pertinent History Other Medical History: BILATERAL TOTAL KNEE REPLACEMENTS - RIGHT AND LEFT DONE AT SAME TIME APPROXIMATELY 10 YEARS AGO. 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 Significant Family History: no pertinent family hx - Social History Smoking Status: Former smoker How long have you smoked: 6 years Exposure to second hand smoke: No Drug Use: none Patient Lives Alone: No - Social Determinants of Health Will the patient participate in the screening: Yes Do you worry about a steady place to live?: No Do you have any problems with any of the following?: No known problems In the past 12 months,have you had to go without utilities?: No Transportation Issues: No Has anyone in your support network made you feel unsafe?: No Have you or anyone in your house had to go without enough: No - Nursing Vital Signs Nursing Vital Signs: Initial Vital Signs Temperature 98.3 F 10/24/23 20:45 Pulse Rate 86 10/24/23 20:45 Respiratory Rate 18 10/24/23 20:45 Blood Pressure 178/78 10/24/23 20:45 O2 Sat by Pulse Oximetry 97 10/24/23 20:45 Pain Scale Pain Intensity 7 - Addison Coma Score Best Eye Response (Anne): (4) open spontaneously Best Verbal Response (Anne): (5) oriented Best Motor Response (Anne): (6) obeys commands Anne Total: 15 - Physical Exam General Appearance: no apparent distress, alert Head Injury: contusions, swelling, tenderness Eye Exam: PERRL/EOMI, eyes nml inspection ENT Exam: airway nml, No evidence of ENT injury, No dental injury Neck Exam: supple, trachea midline, full range of motion, normal alignment Respiratory/Chest Exam: normal breath sounds, No chest tenderness, No respiratory distress Cardiovascular Exam: normal heart sounds, regular rate/rhythm Extremity Exam: normal inspection, normal range of motion, pain with movement (Left shoulder/left hip.) Neurologic Exam: alert, oriented x 3, cooperative Skin Exam: normal color SpO2 Interpretation: normal SpO2: 97 O2 Delivery: Room Air Ordered Tests: Active Orders 24 hr Category Date Time Status CERVICAL SPINE WO CONTRAST [CT] Stat Exams 10/24/23 21:14 Completed HEAD WITHOUT CONTRAST [CT] Stat Exams 10/24/23 21:14 Completed PELVIS WITHOUT CONTRAST [CT] Stat Exams 10/24/23 21:25 Completed SHOULDER Stat Exams 10/24/23 21:14 Completed Medication Summary Discontinued Medications Generic Name Dose Route Start Last Admin Trade Name Tommyq PRN Reason Stop Dose Admin Hydrocodone Bitart/Acetaminophen 1 tab 10/24/23 23:43 10/24/23 23:48 Hydrocodone/Apap 5/325 1 Tab Tablet PO 10/24/23 23:44 1 tab STAT ONE Administration Hydrocodone Bitart/Acetaminophen Confirm 10/24/23 23:47 Hydrocodone/Apap 5/325 1 Tab Tablet Administered 10/24/23 23:48 Dose 1 tab .ROUTE .STK-MED ONE Ondansetron HCl 4 mg 10/24/23 23:43 10/24/23 23:48 Zofran 4 Mg/Udtablet Orally Disintegrating PO 10/24/23 23:44 4 mg STAT ONE Administration Ondansetron HCl Confirm 10/24/23 23:47 Zofran 4 Mg/Udtablet Orally Disintegrating Administered 10/24/23 23:48 Dose 4 mg .ROUTE .STK-MED ONE - Progress Progress: improved Progress Note: 10/25/23 01:38 83 years old is evaluated in the ER after she lost balance and fell backward hitting her head against a rock. No loss of consciousness. Nonfocal neuroexam. She is given symptomatic treatment for pain, reevaluation feeling better. X-rays left shoulder negative for fracture dislocation reviewed by me followed by official read. CT head showed some scalp contusion/swelling but no fracture. No cervical spine fracture or subluxation. CT pelvis is negative for hip fracture but does have some left iliopsoas area edema from fall. She is advised to take Tylenol, intermittent ice application and outpatient follow-up. Discussed signs symptoms of worsening needing return to ER which she seems understanding. She is counseled about using walker/cane all the time to avoid a fall. Counseled pt/family regarding: diagnosis, need for follow-up, rad results Medical Desision Making - Independent Historian Additional History obtained from: Spouse - Diagnostic Testing Diagnostic test were ordered, analyzed, and reviewed by me: Yes Radiological Interpretation: Interpreted by me, Reviewed by me, Teleradiologist Report - Risk of complications The pt has a mod risk of morbidity or mortality based on: Need for prescription drug management - Departure Departure Disposition: Home Clinical Impression: Scalp contusion, Fall with injury, Left shoulder strain, Contusion, hip Condition: Stable Critical Care Time: No Referrals: QUOC DESHPANDE [Primary Care Provider] - Follow up with PCP 1 day Instructions: Contusion (DC), Head injury observation in adults Additional Instructions: Intermittent ice application. Take Tylenol as needed. Follow-up with your primary care for reevaluation. Use cane/walker for ambulation all the time to avoid a fall. Follow head injury instructions and return to ER for any worsening.
--- NOTE | 2023-10-24 22:50 | XRAY ---
CLINICAL HISTORY: fall COMPARISON: No previous studies are available for comparison. TECHNIQUE: A CT scan of the pelvis was performed without the administration of intravenous contrast. Contiguous axial images were obtained from the iliac crests to the pubic symphysis. Coronal and sagittal reformatted images were also reviewed. One of the following dose-reduction techniques was utilized for this exam. Automated exposure control, adjustment of the mA and/or kV according to patient size, and use of iterative reconstruction. FINDINGS: Bones: Generalized reduced bone mineralization is identified. Reduced acetabulofemoral joint spaces are identified bilaterally with marginal osteophytes and subarticular cystic changes/geodes representing bilateral osteoarthritic changes. Normal alignment of the femoral heads, necks, and acetabula. No fractures, lytic, or sclerotic lesions. No evidence of joint effusions or intra-articular loose bodies. Enthesophytes are identified along the greater trochanters of bilateral femora and along bilateral ischial tuberosities and anterior superior iliac spines. Degenerative changes are identified along bilateral sacroiliac joints with interarticular vacuum phenomenon. Ill-defined symmetric lytic areas are identified in bilateral iliac bones likely secondary to patchy osteopenia. Degenerative changes are identified in the visualized spine as evident by osteophytosis with intervertebral vacuum phenomena and facet arthropathy. Soft Tissues: Fluid density area is identified along the iliopsoas muscle close to its femoral attachment on left side measuring 24 x 15 x 48 mm in maximum dimensions which may be secondary to focal muscular edema. If clinically indicated, MRI of the left hip joint is recommended for further evaluation. Otherwise normal appearance of the soft tissues surrounding the hips. No abnormal masses or swelling Mild synovial thickening is identified bilaterally. Vascular Structures: Atherosclerotic calcifications are identified in the visualized pelvic and upper extremity vessels. Uterus: The uterus is not separately visualized consistent with the history of hysterectomy. Both ovaries are not visualized however, no gross adnexal abnormalities are identified bilaterally. Bladder: The urinary bladder is suboptimally distended however, appears grossly unremarkable. Bowel: Colonic diverticulosis identified without features of acute diverticulitis. Pelvic Soft Tissues: The pelvic soft tissues are unremarkable without evidence of mass or abnormal fluid collection. Small uncomplicated fat-containing left sided inguinal/canal of nuck hernia identified. IMPRESSION: 1. No acute osseous abnormality identified. 2. No evidence of fracture or dislocation. 3. Focal fluid density area along the iliopsoas muscle on left side, close to its femoral attachment which may be secondary to focal muscular edema. If clinically indicated, MRI of the left hip joint is recommended for further evaluation. 4. Generalized reduced bone mineralization noted. 5. Osteoarthritic changes identified in bilateral hip and sacroiliac joints as detailed above. 6. 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 7. Colonic diverticulosis without features of acute diverticulitis. Electronically Signed by: Nadir Page MD. (10/24/2023 22:47:05 EDT)
--- NOTE | 2023-10-24 23:05 | XRAY ---
CLINICAL HISTORY: FALL COMPARISON: No previous studies are available for comparison. TECHNIQUE: CT scan of the cervical spine was performed without the administration of intravenous contrast. Contiguous axial images were obtained from the skull base to the upper thoracic spine. Coronal and sagittal reformatted images were also reviewed. One of the following dose reduction techniques was utilized for this exam. Automated exposure control, adjustment of the mA and/or kV according to patient size, and use of iterative reconstruction. FINDINGS: Mild straightening of the cervical spine is identified, likely secondary to muscular spasm. The vertebral bodies are normal in height and alignment. No evidence of acute fracture or dislocation. Degenerative changes are identified in the visualized spine as evident by multilevel anterior and posterior osteophytes with relatively reduced intervertebral disc spaces in the mid and lower cervical spine and multilevel facet arthropathy. This is associated with neural foraminal narrowing at multiple levels bilaterally predominantly at C4-C5, C5-C6 and C6-C7 levels. Degenerative changes are also identified at the craniovertebral junction. Reduced bone mineralization is identified. No signs of lytic or sclerotic lesions. Normal configuration of the posterior elements. The prevertebral soft tissues are normal in thickness without evidence of mass or abnormal fluid collection. IMPRESSION: 1. No acute osseous abnormality identified. 2. 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 If clinically indicated, MRI of the cervical spine is recommended for further evaluation. 3. Mild straightening of the cervical spine, likely secondary to muscular spasm. Electronically Signed by: Nadir Page MD. (10/24/2023 23:01:18 EDT)
--- NOTE | 2023-10-24 23:17 | XRAY ---
CLINICAL HISTORY: FALL COMPARISON: None. TECHNIQUE: An axial non-contrast CT scan of the brain was performed from the skull base to the high parietal region with coronal and sagittal reconstructed images. One of the following dose reduction techniques was utilized for this exam: Automated exposure control, adjustment of the mA and kV according to patient size, and use of iterative reconstruction. DLP: 1322 mGy-cm. FINDINGS: Brain Parenchyma: Mild soft tissue thickening is seen along the right parietal bone, measuring 16 x 5 mm, without any underlying fracture. Normal attenuation of the cerebral hemispheres, cerebellum, and brainstem. There is no evidence of acute infarct, hemorrhage, or mass effect. No abnormal areas of hypo- or hyperattenuation. Ventricular System: The ventricular system, cortical sulci, and basal cisterns are prominent and consistent with senile changes. Subarachnoid Spaces: No evidence of subarachnoid hemorrhage or extra-axial fluid collections. Cerebellum and Brainstem: Normal size and signal. No masses, lesions, or areas of abnormal signal. Orbits: Normal appearance of the globes, optic nerves, and extraocular muscles. No evidence of orbital masses or abnormal signals. Sinuses: Clear paranasal sinuses. No evidence of sinusitis or mucosal thickening. No evidence of mastoiditis. IMPRESSION: 1. Mild soft tissue thickening/subgaleal hematoma along the right parietal bone, measuring 16 x 5 mm, without any underlying fracture. 2. No evidence of intra or extra-axial hematoma. 3. No fracture or dislocation. 4. Age-related involutional changes. 5. Focal linear lucency in the right occipital bone, is only visualized on one slice (image 42/64), may represent undisplaced fracture/nutrient foramen/suture. Advise clinical correlation and if indicated 3D-CT reformat skull images may help. Electronically Signed by: Nadir Page MD. (10/24/2023 23:11:51 EDT)
[2023-10-24] MEDS ORDERED: NORCO 5/325 MG ONE (23:47)
[2023-10-24] MEDS ORDERED: ZOFRAN ODT 4 MG ONE (23:47)
--- NOTE | 2023-10-24 23:47 | XRAY ---
CLINICAL HISTORY: FALL COMPARISON: None. TECHNIQUE: X-ray examination of the left shoulder joint is performed in AP, internal/external rotations, and Y views. FINDINGS: No obvious/definite acute bony abnormality. Osteopenic bones. Moderate to severe osteoarthritic changes at left glenohumeral and acromioclavicular joints. Soft tissue calcification foci adjacent to the humeral head could be due to calcific tendinopathy. No bony erosion or sclerosis. Mild soft tissue swelling. IMPRESSION: 1. No obvious/definite acute bony abnormality. 2. Mild soft tissue swelling. 3. Osteoarthritic changes at the left shoulder joint. DISCLAIMER:A subtle bone abnormality or fracture may not be readily apparent on x-rays, thus clinical correlation and further imaging including follow up CT, MRI, or follow up x-rays are advised as needed. Electronically Signed by: Nadir Page MD. (10/24/2023 23:42:05 EDT)
[2023-10-24] MEDS: ZOFRAN ODT 4 MG PO ONE (23:48)
[2023-10-24] MEDS: NORCO 5/325 MG PO ONE (23:48)
[2023-10-25 01:07] VITALS: O2SAT 97
[2023-10-25 02:05] VITALS: BP 155/78; PULSE 73
== END 2023-10-25 02:00 | disposition home or self-care (01) ==
LOC: ED 20:36
DX: S00.03XA Contusion of scalp, initial encounter (principal); S70.02XA Contusion of left hip, initial encounter; S46.912A Strain of unspecified muscle, fascia and tendon at shoulder and upper arm level, left arm, initial encounter; W18.39XA Other fall on same level, initial encounter; Y93.01 Activity, walking, marching and hiking; Y92.007 Garden or yard of unspecified non-institutional (private) residence as the place of occurrence of the external cause; M54.2 Cervicalgia; I10 Essential (primary) hypertension; E78.5 Hyperlipidemia, unspecified; E11.9 Type 2 diabetes mellitus without complications; Z79.84 Long term (current) use of oral hypoglycemic drugs; Z79.899 Other long term (current) drug therapy
CPT/HCPCS: 70450; 72125; 72192; 73030; 99283; Q0162; A9270-GY

== ENCOUNTER 2025-01-12 13:27 | Emergency (ER) | payer MEDICARE ==
[2025-01-12 13:40] VITALS: TEMP 98
[2025-01-12] MEDS ORDERED: TYLENOL EXTRA STRENGTH 500 MG ONE (14:24)
[2025-01-12] MEDS: TYLENOL EXTRA STRENGTH 500 MG PO STA (14:27)
--- NOTE | 2025-01-12 16:16 | XRAY ---
CLINICAL HISTORY: head injury COMPARISON: 10/24/2023 TECHNIQUE: Axial non-contrast CT scan of the brain was performed from the skull base to the high parietal region in axial, sagittal and coronal reconstructions. One of the following dose reduction techniques were utilized for this exam: Automated exposure control, adjustment of the mA and/or kV according to patient size, use of iterative reconstruction. FINDINGS: Brain Parenchyma: Age-appropriate cortical changes are evident, as indicated by mildly dilated sulci and ventricles. Accentuated periventricular white matter hypodensity indicates deep white matter microvascular ischemia. Normal attenuation of the cerebral hemispheres, cerebellum, and brainstem is noted. There is no evidence of acute infarct, hemorrhage, or mass effect. Subarachnoid Spaces: There is no evidence of subarachnoid hemorrhage or extra-axial fluid collections. Cerebellum and Brainstem: No masses, lesions, or areas of abnormal density are identified. Orbits: The globes, optic nerves, and extraocular muscles demonstrate normal appearance. No evidence of orbital masses or abnormal density is seen. Sinuses: The paranasal sinuses are clear. There is no evidence of sinusitis or mucosal thickening. Mastoid Air Cells: The mastoid air cells are clear. There is no evidence of mastoiditis. Skull: Normal skull morphology is present. IMPRESSION: 1. No CT signs of acute infarction or hemorrhage. 2. Mild age-appropriate cortical changes with deep white matter microvascular ischemia. Unchanged. Electronically Signed by: Amador Ku MD. (01/12/2025 16:15:32 EST)
--- NOTE | 2025-01-12 16:28 | XRAY ---
CLINICAL HISTORY: neck pain COMPARISON: 10/24/2023 CERVICAL SPINE WO CONTRAST. TECHNIQUE: CT scan of the cervical spine was performed without the administration of intravenous contrast. Contiguous axial images were obtained from the skull base to the upper thoracic spine. Coronal and sagittal reformatted images were also reviewed. One of the following dose reduction techniques was utilized for this exam. Automated exposure control, adjustment of the mA and/or kV according to patient size, and use of iterative reconstruction. FINDINGS: Vertebrae: Mild straightening of the cervical spine is identified, likely secondary to muscular spasm. The vertebral bodies are normal in height and alignment. No evidence of acute fracture or dislocation. Degenerative changes are identified in the visualized spine, represented by multilevel anterior and posterior osteophytes, relatively reduced intervertebral disc spaces, sclerotic end-plates, and multilevel facet arthropathy. Preserved configuration of the posterior elements. Intervertebral Discs: Reduced spaces with multilevel bulges. Facet Joints: The facet joints: degenerative changes. Neural Foramina: Neural foraminal narrowing at multiple levels bilaterally, predominantly at C4-C5, C5-C6, and C6-C7 levels. Prevertebral Soft Tissues: The prevertebral soft tissues are normal in thickness without evidence of mass or abnormal fluid collection. IMPRESSION: 1. No evidence of acute fracture or dislocation. 2. Diffuse degenerative changes as detailed above. 3. No detected interval changes. Electronically Signed by: Amador Ku MD. (01/12/2025 16:27:24 EST)
--- NOTE | 2025-01-12 16:46 | XRAY ---
CLINICAL HISTORY: head injury COMPARISON: None. TECHNIQUE: A CT scan of the maxillofacial region was performed without the administration of intravenous contrast. Contiguous [specify slice thickness] axial images were obtained from the skull base to the mandible. Coronal and sagittal reformatted images were also reviewed. One of the following dose reduction techniques was utilized for this exam. Automated exposure control, adjustment of the mA and/or kV according to patient size, and use of iterative reconstruction. FINDINGS: Bones: Maxilla: The maxillary bones are intact without evidence of acute fracture, lytic or sclerotic lesions. No signs of maxillary sinus wall fractures. Mandible: The mandibular bone is intact with normal cortices and trabecular patterns. There is no evidence of fracture, osteomyelitis, or neoplastic lesion. Zygomatic Bones: The zygomatic arches are intact bilaterally without evidence of fracture or deformity. Nasal Bones: The nasal bones are intact with no signs of fracture or displacement. Orbital Morris: The orbital morris are intact with no evidence of fracture or bony erosion. Orbits: The orbits are normal in size and shape. The globes are symmetric and well-positioned with no evidence of proptosis. The extraocular muscles appear normal in size and symmetry. The optic nerves are normal in caliber and course with no signs of compression or lesion. No retro-orbital masses or abnormal fluid collections are observed. Nasal Cavity and Paranasal Sinuses: S-shaped nasal septum with left-sided nasal spur Nasal Cavity: The nasal cavity is clear with no evidence of masses, polyps, Frontal Sinuses: The frontal sinuses are well-pneumatized and free of fluid or soft tissue masses. Ethmoid Sinuses: The ethmoid air cells are clear with no mucosal thickening or fluid levels. Maxillary Sinuses: The maxillary sinuses are well-pneumatized with no fluid levels, mucosal thickening, or masses. Sphenoid Sinuses: The sphenoid sinuses are clear with no abnormalities noted. Temporomandibular Joints (TMJ): Bilateral flattening of the mandibular condyles with subchondral sclerosis, indicating osteoarthritic changes. The mandibular condyles are well-positioned within the glenoid fossae. There are no signs of dislocation, subluxation, or degenerative changes. The articular eminences are normal in contour. Soft Tissues: The soft tissues of the face, including the cheeks, lips, and submandibular regions, appear unremarkable. There are no masses, cysts, or abnormal fluid collections. The parotid and submandibular glands are normal in size and appearance without focal lesions. Dentition: The teeth are well-aligned with no evidence of fractures or significant dental pathology. There are no signs of periapical abscesses or cystic lesions. The alveolar ridges are intact without evidence of osteolysis. Additional Findings: There are no additional abnormal findings in the visualized soft tissue structures or bony elements. No signs of osteomyelitis or other infectious processes. IMPRESSION: 1. No evidence of acute fracture or dislocation. 2. Bilateral mild TMJ osteoarthritis. Clinical evaluation is advised. RECOMMENDATIONS: No further imaging is required at this time. Clinical correlation is recommended for any persistent symptoms. Electronically Signed by: Amador Ku MD. (01/12/2025 16:44:25 EST)
--- NOTE | 2025-01-12 16:46 | XRAY ---
CLINICAL HISTORY: sacral and pelvic pain COMPARISON: Comparison is made with the prior CT pelvis dated 10/24/2023. TECHNIQUE: A CT scan of the pelvis was performed without the administration of intravenous contrast. Contiguous axial images were obtained from the iliac crests to the pubic symphysis. Coronal and sagittal reformatted images were also reviewed. One of the following dose-reduction techniques was utilized for this exam. Automated exposure control, adjustment of the mA and/or kV according to patient size, and use of iterative reconstruction. FINDINGS: Bones: No fracture or dislocation. Normal alignment of the femoral heads, necks, and acetabula. Stable diffuse osteopenia with mottled texture likely related to osteoporosis. Unchanged bilateral iliac, ischial and greater trochanteric insertional enthesopathies. Spondylodegenerative changes are again noted in the visualized lumbar spine showing marginal osteophytosis with subcortical sclerosis and vacuum phenomena. Grade 1 degenerative spondylolisthesis of L4 over L5 is again noted. A tiny sclerotic osseous lesion is noted at the left ischium, likley a bone island, unchanged. Joints: Redemonstration of moderate right and mild left hip osteoarthritic changes, evident by narrowed joint spaces with small marginal osteophytes and subcortical cystic changes. No evidence of intra-articular loose bodies. Moderate bilateral degenerative sacroiliitis are also noted. Soft Tissues: Stable small cystic area 27 x 20x 48 mm related to the left iliopsoas tendon. Otherwise, normal appearance of the soft tissues surrounding the hips. No abnormal masses or swelling Vascular Structures: Atherosclerotic vascular calcifications are identified in the visualized pelvic and lower extremity vessels. Bladder: The urinary bladder shows no evidence of intraluminal masses. Bowel: Colonic diverticulosis was again identified. Newly seen pericolic fat stranding and mural wall thickening at the ascending colon, suggesting diverticulitis. Pelvic Soft Tissues: The pelvic soft tissues are unremarkable without evidence of mass or abnormal fluid collection. Small, uncomplicated, fat-containing left-sided inguinal/canal of Nuck hernia identified, stable small fat-containing umbilical hernia. stable IMPRESSION: 1. No acute osseous abnormality identified. No evidence of fracture or dislocation. 2. Colonic diverticulosis was again identified. Newly seen pericolic fat stranding and mural wall thickening at the ascending colon, suggesting diverticulitis (new). 3. Stable diffuse osteoporosis. 4. Bilateral hip and sacroiliac osteoarthritis, unchanged. 5. Stable small cystic area 27 x 20x 48 mm related to the left iliopsoas tendon, suggesting bursitis. Electronically Signed by: Amador Ku MD. (01/12/2025 16:44:33 EST)
[2025-01-12 17:26] VITALS: BP 162/84; PULSE 46; RESP 14; O2SAT 95
[2025-01-12] MEDS ORDERED: Cipro 500 MG ONE (17:33)
[2025-01-12] MEDS ORDERED: Flagyl 500 MG ONE (17:33)
[2025-01-12] MEDS: Flagyl 500 MG PO ONE (17:34)
[2025-01-12] MEDS: Cipro 500 MG PO ONE (17:34)
--- NOTE | 2025-01-12 17:34 | ERPHSYRPT ---
- History of Present Illness Source: patient Exam Limitations: no limitations, clinical condition Patient Subjective Stated Complaint: PT states "I fell backward and hit my butt and the back of my head.". EMS states "She has had a previous fall that has affected her memory and she is at her normal mentation at this time." Triage Nursing Assessment: PT presented alert to her norm, at bedside. PT arrived via ambulance with c collar in place and pt hearing aids were screeching. Pt did not want them removed due to her not being able to hear. PT has pain in the back of her head and her tailbone and winces when every part of her body is assessed. Severity: mild Modifying Factors: Improves With: cold therapy Allergies/Adverse Reactions: celecoxib [From Celebrex] Allergy (Verified 10/24/23 21:04) fenoprofen calcium [From Nalfon] Allergy (Verified 10/24/23 21:04) Home Medications: Simvastatin 40 mg PO HS 09/15/16 [History] Doxycycline Hyclate [Vibramycin] 50 mg PO DAILY 11/30/19 [History] Glimepiride 1 mg PO DAILY 11/30/19 [History] Tramadol HCl 50 mg [Ultram 50 mg] 50 mg PO Q6H PRN PRN 11/30/19 [History] Vit C/E/Cuperic/Zinc/Lutein [Preservision Lutein Softgel] 1 each PO DAILY 11/30/19 [History] Aspirin 81 gm Chew [Baby Aspirin 81 mg Chew] 81 mg PO DAILY PRN PRN 08/16/22 [History] Desoximetasone 15 gm TP HSPRN PRN 08/16/22 [History] Patient Own Med [Patient Own Medication] 1 tablet PO DAILY 08/16/22 [History] Diclofenac Sodium [Voltaren Arthritis Pain] 20 gm TP DAILY PRN PRN 10/24/23 [History] Hx Tetanus, Diphtheria Vaccination/Date Given: No Hx Influenza Vaccination/Date Given: No Hx Pneumococcal Vaccination/Date Given: Yes Travel Risk - International Travel Have you traveled outside of the country in past 3 weeks: No - Emerging Infectious Disease Are you exhibiting symptoms associated with any current EIDs: No - Review of Systems Constitutional: No Symptoms Eyes: No Symptoms Ears, Nose, & Throat: No Symptoms Respiratory: No Symptoms Cardiac: No Symptoms Abdominal/Gastrointestinal: No Symptoms Genitourinary Symptoms: No Symptoms Musculoskeletal: No Symptoms Skin: No Symptoms Neurological: No Symptoms Psychological: No Symptoms Endocrine: No Symptoms Hematologic/Lymphatic: No Symptoms Immunological/Allergic: No Symptoms All Other Systems: Reviewed and Negative - Past Medical History Pertinent Past Medical History: Yes Neurological History: No Pertinent History ENT History: No Pertinent History, Macular Degeneration Cardiac History: Arrhythmia Respiratory History: Asthma, Pneumonia, Other Endocrine Medical History: Diabetes Type II Musculoskeletal History: Osteoarthritis GI Medical History: Irritable Bowel History: No Pertinent History Psycho-Social History: No Pertinent History Female Reproductive Disorders: No Pertinent History Other Medical History: GETS PNEUMONIA EASILY. POSSIBLE L RTC TEAR. CORTISONE INJECTION IN THE L SHOULDER 03/01/24. 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 Significant Family History: no pertinent family hx - Social History Smoking Status: Former smoker Exposure to second hand smoke: No Drug Use: none - Social Determinants of Health Will the patient participate in the screening: Yes Do you worry about a steady place to live?: No Do you have any problems with any of the following?: No known problems In the past 12 months,have you had to go without utilities?: No Transportation Issues: No Has anyone in your support network made you feel unsafe?: No Have you or anyone in your house had to go w/o enough food: No - Nursing Vital Signs Nursing Vital Signs: Initial Vital Signs Temperature 98.0 F 01/12/25 13:32 Pulse Rate 66 01/12/25 13:32 Respiratory Rate 18 01/12/25 13:32 Blood Pressure 178/56 01/12/25 13:32 O2 Sat by Pulse Oximetry 96 01/12/25 13:32 Pain Scale Pain Intensity 0 - Physical Exam General Appearance: no apparent distress Eye Exam: PERRL/EOMI Ears, Nose, Throat Exam: normal ENT inspection Respiratory Exam: normal breath sounds Cardiovascular Exam: regular rate/rhythm, normal heart sounds Gastrointestinal/Abdomen Exam: soft, normal bowel sounds Back Exam: normal inspection, normal range of motion Neurologic Exam: alert, oriented x 3 SpO2: 95 Ordered Tests: Active Orders 24 hr Category Date Time Status CERVICAL SPINE WO CONTRAST [CT] Stat Exams 01/12/25 14:15 Completed FACIAL BONES WO CONTRAST [CT] Stat Exams 01/12/25 14:17 Completed HEAD WITHOUT CONTRAST [CT] Stat Exams 01/12/25 14:14 Completed PELVIS WITHOUT CONTRAST [CT] Stat Exams 01/12/25 14:16 Completed Medication Summary Discontinued Medications Generic Name Dose Route Start Last Admin Trade Name Shekhar PRN Reason Stop Dose Admin Acetaminophen 500 mg 01/12/25 14:18 01/12/25 14:27 Acetaminophen 500 Mg Tablet PO 01/12/25 14:19 500 mg STAT STA Administration Acetaminophen Confirm 01/12/25 14:24 Acetaminophen 500 Mg Tablet Administered 01/12/25 14:25 Dose 500 mg .ROUTE .STK-MED ONE Ciprofloxacin 500 mg 01/12/25 17:27 Ciprofloxacin 500 Mg Tablet PO 01/12/25 17:28 ONCE ONE - Progress Progress Note: patient was seen and evaluated for her complaints - ct head/neck face and pelvis were ordered -Patient was updated with the results of the CT scans of the head and neck face and pelvis. She denies any abdominal pain at this time, Kenny CLAYTON present for the discussion. She does not want to be admitted to the hospital. She prefers to go home she will be given 1 dose of Cipro and Flagyl here in the department and discharged home with a course of Cipro and Flagyl. She was informed of the need to follow-up with her primary care provider and general surgeon in the morning 01/12/25 17:30 Medical Desision Making - Discussion of managment Agreed on:: need for follow-up - Departure Departure Disposition: Home Clinical Impression: Ground-level fall, Pain in sacrum, Acute diverticulitis Condition: Stable Critical Care Time: No Referrals: [facility] [Primary Care Provider, [facility]] - Follow up/PCP as directed Prescriptions: Ciprofloxacin [Cipro 500 MG] 500 mg PO BID #14 tablet Metronidazole 500 mg [Flagyl 500 MG] 500 mg PO BID #14 tablet
== END 2025-01-12 17:41 | disposition home or self-care (01) ==
LOC: ED 13:27
DX: M53.3 Sacrococcygeal disorders, not elsewhere classified (principal); W18.30XA Fall on same level, unspecified, initial encounter; K57.92 Diverticulitis of intestine, part unspecified, without perforation or abscess without bleeding; E11.9 Type 2 diabetes mellitus without complications; Z79.84 Long term (current) use of oral hypoglycemic drugs; Z79.899 Other long term (current) drug therapy